=== PATIENT | male | born 1960 | race Caucasian/White ===

== ENCOUNTER 2022-10-27 13:26 | Inpatient (IN) | payer BC ==
[~2022-10-27] VITALS: Ht 190.5 cm; Wt 105.0 kg
[2022-10-27] VITALS (7 sets, daily range): BP systolic 112–152; BP diastolic 86–93
[2022-10-27] MEDS ORDERED: metoclopramide 5 mg/ml inj IV ONE (14:40)
[2022-10-27] MEDS ORDERED: proMETHazine 25mg tablet PO ONE (14:40)
[2022-10-27 15:06] LABS: BASOPHILS % (AUTO) 0.3 % (0-1); EOSINOPHILS % (AUTO) 0 % (0-6); HEMATOCRIT 23.5 % (42.0-52.0); LYMPHOCYTES # (AUTO) 0.9 X10'3 (1.1-4.8); MEAN CORPUSCULAR HEMOGLOBIN 18.5 PG (27.0-31.0); MEAN CORPUSCULAR HGB CONC 29.4 g/dL (33.0-36.5); MEAN CORPUSCULAR VOLUME 63.2 FL (78-98); MEAN PLATELET VOLUME 8.4 FL (7.4-10.4); MONOCYTES # (AUTO) 0.8 X10'3 (0-0.9); MONOCYTES % (AUTO) 7.7 % (2-12); PLATELET COUNT 392 X10'3 (140-440); RED BLOOD COUNT 3.72 X10'6 (4.70-6.10); WHITE BLOOD COUNT 10.7 X10'3 (4.5-11.0)
[2022-10-27 15:09] LABS: HEMOGLOBIN 6.9 g/dl (14.0-17.9)
[2022-10-27 15:19] LABS: ALANINE AMINOTRANSFERASE 13 U/L (12-78); ALBUMIN 3.5 G/DL (3.4-5.0); ALBUMIN/GLOBULIN RATIO 0.9 (1.1-1.5); ALKALINE PHOSPHATASE 75 IU/L (46-116); ANION GAP 7 (8-16); ASPARTATE AMINO TRANSFERASE 14 U/L (10-37); BILIRUBIN,TOTAL 0.3 MG/DL (0.1-1.0); BLOOD UREA NITROGEN 12 MG/DL (7-18); BUN/CREATININE RATIO 10.3 (5.4-32.0); CALCIUM 9.2 MG/DL (8.5-10.1); CHLORIDE 97 MMOL/L (99-107); CREATININE 1.16 MG/DL (0.60-1.10); GLUCOSE 125 MG/DL (70-104); SODIUM 135 MMOL/L (135-145); TOTAL CARBON DIOXIDE 30.9 MMOL/L (24-32); TOTAL PROTEIN 7.4 G/DL (6.4-8.2); eGFR 64 ML/MIN
[2022-10-27 15:20] LABS: POTASSIUM 2.9 MMOL/L (3.5-5.1)
[2022-10-27 15:25] LABS: ANISOCYTOSIS 3+; HYPOCHROMASIA 1+; MICROCYTOSIS 2+; PLATELET ESTIMATE NORMAL
[2022-10-27 15:26] LABS: ELLIPTOCYTES FEW; POIKILOCYTOSIS FEW; POLYCHROMASIA FEW
[2022-10-27] MEDS ORDERED: potassium Cl 20 mEq SR tablet PO ONE (15:50)
[2022-10-27] MEDS: magnesium 2GM in 50ml NS 50 ML IV SCH ×2 (16:34→18:30)
[2022-10-27] MEDS: potassium CL 10mEq/100ml bag 100 ML IV SCH ×3 (16:34→20:06)
--- NOTE | 2022-10-27 22:17 | NUR ---
DR. GALICIA NOTIFIED OF POSSIBLE BLOOD TRANSFUSION REACTION ON SECOND UNIT OF BLOOD. PT.S TEMP AT START OF TRANSFUSION 98.4 AT 1 HOUR INTO TRANSFUSION TEMP 100.2. PER DR. GALICIA LAB NOTIFIED. SPOKE WITH BALJIT AND IS TO CALL BACK. PT. DENIES ANY OTHER TRANSFUSION REACTION SYMPTOMS WHEN ASKED. Addendum: 10/27/22 at 2220 by SPARENT TRANSFUSION WAS STOPPED PER DR. GALICIA PRIOR TO CALLING THE LAB.
--- NOTE | 2022-10-27 22:33 | NUR ---
SPOKE WITH BALJIT IN BLOOD BANK REQUESTED 2 BLOOD BANK TUBES TO BE DRAWN AND TO SEND BLOOD AND TUBING TO THE BLOOD BANK.
--- NOTE | 2022-10-27 22:37 | NUR ---
SPOKE WITH BALJIT AGAIN AND IS REQUESTING NEW URINE SAMPLE
[2022-10-28 00:01] LABS: CLARITY,URINE SLIGHTLY CLOUDY (Clear); COLOR,URINE YELLOW (Yellow); GLUCOSE, URINE NEGATIVE (Neg); KETONES,URINE NEGATIVE (Neg); LEUKOCYTE ESTERASE ,URINE NEGATIVE (Neg); NITRITES, URINE NEGATIVE (Neg); OCCULT BLOOD,URINE NEGATIVE (Neg); PH,URINE 8.5 (4.8-8.0); PROTEIN,URINE NEGATIVE (Neg); UROBILINOGEN,URINE 0.2 E.U/dL (0.2-1.0)
[2022-10-28 00:02] LABS: UA COLLECTION TYPE STRAIGHT CATH
[2022-10-28 00:10] LABS: RBC,URINE 0-2 /HPF (0-2); WBC,URINE 0-4 /HPF (0-4)
[2022-10-28 00:11] LABS: BACTERIA,URINE NONE SEEN /HPF (Neg); MUCUS STRANDS NONE SEEN /LPF (Neg); SQUAMOUS EPITHELIAL CELL,UR NONE SEEN /LPF (FEW)
[2022-10-28 00:12] LABS: AMORPHOUS PHOSPHATES 3+
--- NOTE | 2022-10-28 00:46 | NUR ---
PT. HAS BEEN NON-COMPLIANT THROUGH OUT NIGHT WITH KEEPING MONITORS ON. HAVE REAPPLIED AND INSTRUCTED PT. TO KEEP ON, AT THE TIME HE VERBALIZES UNDERSTANDING YET CONTINUES TO REMOVE.
--- NOTE | 2022-10-28 01:08 | NUR ---
Patilent is sleeping quietly. Supine in bed. No distress.
--- NOTE | 2022-10-28 06:21 | NUR ---
report from britany pearson for continuation of care. pt is sleeping in position of comfort with even rise and fall of chest. vs wnl. iv site intact and patent
[2022-10-28 06:23] LABS: OCCULT BLOOD STOOL POSITIVE (Neg)
[2022-10-28] MEDS ORDERED: FURO40TA4 PO ×2 (07:27→07:43)
[2022-10-28] MEDS ORDERED: QUET25TA PO (07:37)
[2022-10-28] MEDS ORDERED: MULT-1085 PO (07:37)
[2022-10-28] MEDS ORDERED: FLO0.4C PO (07:40)
[2022-10-28] MEDS ORDERED: CHLO118M PO ×2 (07:44→07:47)
[2022-10-28] MEDS ORDERED: LOP12.5T PO ×2 (07:45→07:48)
[2022-10-28] MEDS ORDERED: DULO-31 PO (07:50)
[2022-10-28] MEDS ORDERED: FURO-150 PO (07:52)
[2022-10-28] MEDS ORDERED: QUET-1 PO (07:52)
[2022-10-28] MEDS ORDERED: OMEP20TA23 PO (07:56)
[2022-10-28] MEDS ORDERED: CYAN-34 PO (07:56)
[2022-10-28] MEDS ORDERED: PANT-47 PO ×2 (07:58→08:15)
[2022-10-28] MEDS ORDERED: POTA20PA40 PO (08:02)
[2022-10-28] MEDS ORDERED: SODI1TAB2 PO (08:05)
[2022-10-28] MEDS ORDERED: POTA8CAP20 PO (08:05)
[2022-10-28] MEDS ORDERED: ACET-1008 PO (08:07)
[2022-10-28] MEDS ORDERED: OXYC-150 PO (08:09)
[2022-10-28] MEDS ORDERED: ONDA4TAB12 PO (08:10)
[2022-10-28] MEDS ORDERED: PROM25TA14 PO (08:15)
--- NOTE | 2022-10-28 08:24 | NUR ---
[facility] # [phone]
[2022-10-28] MEDS ORDERED: potassium Cl 40MEQ/1/2NS 520ml 520 ML IV PRN (08:40)
[2022-10-28] MEDS ORDERED: acetaminophen 325mg tablet PO PRN ×2 (08:40→13:10)
[2022-10-28] MEDS ORDERED: ondansetron/PF 4mg/2ml inj IV PRN (08:40)
[2022-10-28] MEDS ORDERED: potassium Cl 20 mEq SR tablet PO PRN ×2 (08:40)
[2022-10-28] MEDS ORDERED: magnesium 4gm in 100ml NS 100 ML IV PRN (08:40)
[2022-10-28] MEDS ORDERED: magnesium hydroxide 30ml (MOM) UD suspension PO PRN (08:40)
[2022-10-28 09:46] LABS: ALANINE AMINOTRANSFERASE 11 U/L (12-78); ALBUMIN 3.3 G/DL (3.4-5.0); ALBUMIN/GLOBULIN RATIO 0.9 (1.1-1.5); ALKALINE PHOSPHATASE 68 IU/L (46-116); BASOPHILS % (AUTO) 0.5 % (0-1); BILIRUBIN,TOTAL 0.5 MG/DL (0.1-1.0); BLOOD UREA NITROGEN 7 MG/DL (7-18); BUN/CREATININE RATIO 8.1 (5.4-32.0); CALCIUM 8.1 MG/DL (8.5-10.1); CHLORIDE 104 MMOL/L (99-107); CREATININE 0.86 MG/DL (0.60-1.10); EOSINOPHILS # (AUTO) 0.2 X10'3 (0-0.9); EOSINOPHILS % (AUTO) 2.6 % (0-6); GLUCOSE 99 MG/DL (70-104); HEMATOCRIT 26.8 % (42.0-52.0); HEMOGLOBIN 8.2 g/dl (14.0-17.9); LYMPHOCYTES # (AUTO) 1.3 X10'3 (1.1-4.8); MAGNESIUM 2.2 MG/DL (1.5-2.4); MEAN CORPUSCULAR HGB CONC 30.8 g/dL (33.0-36.5); MEAN CORPUSCULAR VOLUME 68.1 FL (78-98); MEAN PLATELET VOLUME 8.5 FL (7.4-10.4); MONOCYTES # (AUTO) 0.8 X10'3 (0-0.9); MONOCYTES % (AUTO) 9.7 % (2-12); NEUTROPHILS # (AUTO) 6.2 X10'3 (1.8-7.7); NEUTROPHILS % (AUTO) 72.2 % (42-75); PLATELET COUNT 309 X10'3 (140-440); RED BLOOD COUNT 3.93 X10'6 (4.70-6.10); RED CELL DISTRIBUTION WIDTH 29.9 % (11.5-14.5); TOTAL CARBON DIOXIDE 25.2 MMOL/L (24-32); TOTAL PROTEIN 6.8 G/DL (6.4-8.2); WHITE BLOOD COUNT 8.6 X10'3 (4.5-11.0); eGFR 90 ML/MIN
[2022-10-28 10:04] LABS: ANION GAP 7 (8-16); ASPARTATE AMINO TRANSFERASE 13 U/L (10-37); POTASSIUM 3.6 MMOL/L (3.5-5.1); SODIUM 136 MMOL/L (135-145)
[2022-10-28 10:21] LABS: ANISOCYTOSIS 3+; ELLIPTOCYTES 1+; HYPOCHROMASIA 1+; MICROCYTOSIS 2+; PLATELET ESTIMATE NORMAL; POLYCHROMASIA 1+; STOMATOCYTES FEW; TEAR DROP CELLS 1+
[2022-10-28] MEDS: pantoprazole 40MG/NS 100ML BAG 100 ML IV SCH ×3 (10:34→20:48)
--- NOTE | 2022-10-28 10:38 | NUR ---
ROBERT FROM [facility], [facility] OF [facility]. [facility] WOULD LIKE UPDATE AND CONDITION REPORT. CONTACT NUMBER IS .
--- NOTE | 2022-10-28 11:04 | NUR ---
Patient in room [facility]. I have received report from MYRON PHILLIPS FROM ER and had the opportunity to ask questions and assume patient care.
--- NOTE | 2022-10-28 11:10 | NUR ---
REPORT TO VAUGHN SANCHES FOR CONTINUATION OF CARE
[2022-10-28 11:30] VITALS: BP 139/82
[2022-10-28] MEDS ORDERED: proMETHazine 25mg tablet PO PRN (13:10)
[2022-10-28] MEDS ORDERED: ondansetron 4mg rapidly disintigrating tab PO PRN (13:10)
[2022-10-28] MEDS: mag hydrox/Alum hydrox/simeth 30ml oral suspension PO PRN ×2 (14:42→20:54)
[2022-10-28 18:00] VITALS: BP 156/97
--- NOTE | 2022-10-28 18:27 | NUR ---
Problems reprioritized. Patient report given, questions answered & plan of care reviewed with SABINO Carson RN.
[2022-10-28] MEDS: K and/or MAG REPLACEMENT MC SCH (19:40)
[2022-10-28] MEDS: quetiapine 100mg tablet PO SCH (20:49)
[2022-10-28] MEDS: duloxetine 30mg CAPSULE.DR PO SCH (20:49)
[2022-10-28] MEDS: metoprolol tartrate 25mg tablet PO SCH (20:49)
[2022-10-28] MEDS: potassium chloride 8mEq ER tablet PO SCH (20:49)
[2022-10-28] MEDS: sodium chloride 1gm tablet PO SCH (20:49)
[2022-10-28] MEDS: furosemide 20MG tablet PO SCH (20:49)
[2022-10-28] MEDS: docusate sod 100mg capsule PO SCH (20:50)
[2022-10-28 22:00] VITALS: BP 94/52
[2022-10-29] MEDS: pantoprazole 40MG/NS 100ML BAG 100 ML IV SCH ×5 (02:27→21:39)
[2022-10-29 06:00] VITALS: BP 99/50
--- NOTE | 2022-10-29 06:03 | NUR ---
Problems reprioritized. Patient report given, questions answered & plan of care reviewed with MYRON Brooke.
--- NOTE | 2022-10-29 06:24 | NUR ---
Patient in room [facility]. I have received report from SABINO Carson RN and had the opportunity to ask questions and assume patient care.
[2022-10-29 06:56] LABS: BASOPHILS # (AUTO) 0.1 X10'3 (0-0.2); BASOPHILS % (AUTO) 0.8 % (0-1); EOSINOPHILS # (AUTO) 0.7 X10'3 (0-0.9); EOSINOPHILS % (AUTO) 8.7 % (0-6); LYMPHOCYTES # (AUTO) 1.8 X10'3 (1.1-4.8); LYMPHOCYTES % (AUTO) 21.4 % (21-51); MEAN CORPUSCULAR HEMOGLOBIN 21.1 PG (27.0-31.0); MEAN CORPUSCULAR HGB CONC 30.8 g/dL (33.0-36.5); MEAN CORPUSCULAR VOLUME 68.6 FL (78-98); MEAN PLATELET VOLUME 8.6 FL (7.4-10.4); MONOCYTES # (AUTO) 0.8 X10'3 (0-0.9); MONOCYTES % (AUTO) 10.2 % (2-12); NEUTROPHILS # (AUTO) 4.8 X10'3 (1.8-7.7); NEUTROPHILS % (AUTO) 58.9 % (42-75); PLATELET COUNT 273 X10'3 (140-440); RED BLOOD COUNT 3.79 X10'6 (4.70-6.10); RED CELL DISTRIBUTION WIDTH 29.5 % (11.5-14.5); WHITE BLOOD COUNT 8.2 X10'3 (4.5-11.0)
[2022-10-29 07:31] LABS: ALANINE AMINOTRANSFERASE 7 U/L (12-78); ALBUMIN 3.2 G/DL (3.4-5.0); ALKALINE PHOSPHATASE 66 IU/L (46-116); ANION GAP 7 (8-16); ASPARTATE AMINO TRANSFERASE 16 U/L (10-37); BILIRUBIN,TOTAL 0.6 MG/DL (0.1-1.0); BLOOD UREA NITROGEN 7 MG/DL (7-18); BUN/CREATININE RATIO 7.5 (5.4-32.0); CHLORIDE 105 MMOL/L (99-107); CREATININE 0.93 MG/DL (0.60-1.10); GLUCOSE 92 MG/DL (70-104); MAGNESIUM 2.3 MG/DL (1.5-2.4); POTASSIUM 3.8 MMOL/L (3.5-5.1); SODIUM 139 MMOL/L (135-145); TOTAL CARBON DIOXIDE 27.1 MMOL/L (24-32); TOTAL PROTEIN 6.4 G/DL (6.4-8.2); eGFR 82 ML/MIN
[2022-10-29] MEDS ORDERED: cyanocobalamin 500mcg tablet PO SCH (08:00)
[2022-10-29] MEDS: K and/or MAG REPLACEMENT MC SCH ×2 (08:00→19:13)
[2022-10-29] MEDS ORDERED: SINCALIDE IV ONE (08:40)
[2022-10-29] MEDS ORDERED: NORMAL SALINE IV ONE (08:40)
[2022-10-29] MEDS: furosemide 40mg tablet PO SCH (10:42)
[2022-10-29] MEDS: tamsulosin 0.4mg capsule PO SCH (10:43)
[2022-10-29] MEDS: docusate sod 100mg capsule PO SCH ×2 (10:43→19:23)
[2022-10-29] MEDS: multivitamins, therapeutics tablet PO SCH (10:43)
[2022-10-29] MEDS: potassium chloride 8mEq ER tablet PO SCH ×2 (10:44→19:23)
[2022-10-29] MEDS: sodium chloride 1gm tablet PO SCH ×2 (10:44→19:24)
[2022-10-29] MEDS: QUEtiapine 25mg tablet PO SCH (10:44)
[2022-10-29] MEDS: metoprolol tartrate 25mg tablet PO SCH ×2 (10:44→19:23)
[2022-10-29 11:00] VITALS: BP 131/78
[2022-10-29 18:30] VITALS: BP 107/65
--- NOTE | 2022-10-29 18:30 | NUR ---
Patient in room [facility]. I have received report from MYRON Brooke and had the opportunity to ask questions and assume patient care. Addendum: 10/29/22 at 1919 by Jay Toscano RN Amended: Links added.
--- NOTE | 2022-10-29 18:58 | NUR ---
Problems reprioritized. Patient report given, questions answered & plan of care reviewed with MYRON BURGER.
[2022-10-29] MEDS: mag hydrox/Alum hydrox/simeth 30ml oral suspension PO PRN (21:38)
[2022-10-29] MEDS: quetiapine 100mg tablet PO SCH (21:39)
[2022-10-29] MEDS: furosemide 20MG tablet PO SCH (21:39)
[2022-10-29] MEDS: duloxetine 30mg CAPSULE.DR PO SCH (21:39)
[2022-10-29 22:30] VITALS: BP 108/64
[2022-10-30] VITALS (12 sets, daily range): BP systolic 101–136; BP diastolic 62–85
[2022-10-30] MEDS: pantoprazole 40MG/NS 100ML BAG 100 ML IV SCH ×4 (01:00→19:11)
--- NOTE | 2022-10-30 06:08 | NUR ---
Problems reprioritized. Patient report given, questions answered & plan of care reviewed with MYRON Brooke. Addendum: 10/30/22 at 0608 by Jay Toscano RN Amended: Links added.
--- NOTE | 2022-10-30 06:23 | NUR ---
Patient in room [facility]. I have received report from MYRON BURGER and had the opportunity to ask questions and assume patient care.
[2022-10-30 06:35] LABS: BASOPHILS # (AUTO) 0.1 X10'3 (0-0.2); BASOPHILS % (AUTO) 0.6 % (0-1); EOSINOPHILS # (AUTO) 0.7 X10'3 (0-0.9); EOSINOPHILS % (AUTO) 7.8 % (0-6); HEMATOCRIT 26.9 % (42.0-52.0); HEMOGLOBIN 8.3 g/dl (14.0-17.9); LYMPHOCYTES # (AUTO) 1.2 X10'3 (1.1-4.8); LYMPHOCYTES % (AUTO) 13.3 % (21-51); MEAN CORPUSCULAR HEMOGLOBIN 21.1 PG (27.0-31.0); MEAN CORPUSCULAR VOLUME 68.1 FL (78-98); MEAN PLATELET VOLUME 8.6 FL (7.4-10.4); MONOCYTES # (AUTO) 0.8 X10'3 (0-0.9); MONOCYTES % (AUTO) 8.7 % (2-12); NEUTROPHILS # (AUTO) 6.1 X10'3 (1.8-7.7); NEUTROPHILS % (AUTO) 69.6 % (42-75); PLATELET COUNT 275 X10'3 (140-440); RED BLOOD COUNT 3.95 X10'6 (4.70-6.10); WHITE BLOOD COUNT 8.8 X10'3 (4.5-11.0)
[2022-10-30 07:10] LABS: ALANINE AMINOTRANSFERASE 8 U/L (12-78); ALBUMIN 3.3 G/DL (3.4-5.0); ALKALINE PHOSPHATASE 72 IU/L (46-116); ANION GAP 6 (8-16); ASPARTATE AMINO TRANSFERASE 18 U/L (10-37); BILIRUBIN,TOTAL 0.6 MG/DL (0.1-1.0); BLOOD UREA NITROGEN 10 MG/DL (7-18); BUN/CREATININE RATIO 10.1 (5.4-32.0); CALCIUM 8.2 MG/DL (8.5-10.1); CHLORIDE 103 MMOL/L (99-107); CREATININE 0.99 MG/DL (0.60-1.10); GLUCOSE 92 MG/DL (70-104); MAGNESIUM 2.1 MG/DL (1.5-2.4); POTASSIUM 3.7 MMOL/L (3.5-5.1); SODIUM 138 MMOL/L (135-145); TOTAL CARBON DIOXIDE 28.7 MMOL/L (24-32); TOTAL PROTEIN 6.7 G/DL (6.4-8.2); eGFR 77 ML/MIN
[2022-10-30] MEDS: tamsulosin 0.4mg capsule PO SCH (08:00)
[2022-10-30] MEDS: potassium chloride 8mEq ER tablet PO SCH ×2 (08:00→19:12)
[2022-10-30] MEDS: cyanocobalamin 500mcg tablet PO SCH (08:00)
[2022-10-30] MEDS: docusate sod 100mg capsule PO SCH ×2 (08:00→19:12)
[2022-10-30] MEDS: metoprolol tartrate 25mg tablet PO SCH ×2 (08:00→19:12)
[2022-10-30] MEDS: sodium chloride 1gm tablet PO SCH ×2 (08:00→20:16)
[2022-10-30] MEDS: QUEtiapine 25mg tablet PO SCH (08:00)
[2022-10-30] MEDS: furosemide 40mg tablet PO SCH (08:00)
[2022-10-30] MEDS: K and/or MAG REPLACEMENT MC SCH ×2 (08:00→19:29)
[2022-10-30] MEDS: multivitamins, therapeutics tablet PO SCH (08:00)
[2022-10-30] MEDS ORDERED: FENTANYL CITRATE/PF 50 MCG/1 ML VIAL ONE (09:55)
[2022-10-30] MEDS ORDERED: LIDOcaine Viscous 15ml cup ONE (09:56)
[2022-10-30] MEDS ORDERED: MIDAZolam 1 MG/ML 5ML VIAL ONE (09:56)
[2022-10-30] MEDS ORDERED: naloxone 0.4 mg/ml inj IV PRN (11:25)
--- NOTE | 2022-10-30 19:03 | NUR ---
Problems reprioritized. Patient report given, questions answered & plan of care reviewed with MYRON PALACIOS.
[2022-10-30] MEDS: furosemide 20MG tablet PO SCH (20:16)
[2022-10-30] MEDS: duloxetine 30mg CAPSULE.DR PO SCH (20:16)
[2022-10-30] MEDS: quetiapine 100mg tablet PO SCH (20:16)
[2022-10-31 06:15] LABS: BASOPHILS % (AUTO) 0.6 % (0-1); EOSINOPHILS # (AUTO) 0.6 X10'3 (0-0.9); EOSINOPHILS % (AUTO) 9.8 % (0-6); HEMOGLOBIN 8.3 g/dl (14.0-17.9); LYMPHOCYTES # (AUTO) 1.3 X10'3 (1.1-4.8); LYMPHOCYTES % (AUTO) 20.5 % (21-51); MEAN CORPUSCULAR VOLUME 67.8 FL (78-98); MEAN PLATELET VOLUME 8.5 FL (7.4-10.4); MONOCYTES # (AUTO) 0.7 X10'3 (0-0.9); MONOCYTES % (AUTO) 10.6 % (2-12); NEUTROPHILS # (AUTO) 3.8 X10'3 (1.8-7.7); NEUTROPHILS % (AUTO) 58.5 % (42-75); PLATELET COUNT 277 X10'3 (140-440); RED BLOOD COUNT 3.98 X10'6 (4.70-6.10); WHITE BLOOD COUNT 6.5 X10'3 (4.5-11.0)
--- NOTE | 2022-10-31 06:24 | NUR ---
Problems reprioritized. Patient report given, questions answered & plan of care reviewed with MYRON PACHECO.
[2022-10-31 06:31] LABS: ALBUMIN 3.1 G/DL (3.4-5.0); ALBUMIN/GLOBULIN RATIO 0.9 (1.1-1.5); ALKALINE PHOSPHATASE 68 IU/L (46-116); ANION GAP 5 (8-16); ASPARTATE AMINO TRANSFERASE 13 U/L (10-37); BILIRUBIN,TOTAL 0.5 MG/DL (0.1-1.0); BLOOD UREA NITROGEN 10 MG/DL (7-18); BUN/CREATININE RATIO 10.4 (5.4-32.0); CALCIUM 8.2 MG/DL (8.5-10.1); CHLORIDE 103 MMOL/L (99-107); CREATININE 0.96 MG/DL (0.60-1.10); GLUCOSE 93 MG/DL (70-104); MAGNESIUM 2.3 MG/DL (1.5-2.4); POTASSIUM 3.8 MMOL/L (3.5-5.1); SODIUM 137 MMOL/L (135-145); TOTAL CARBON DIOXIDE 28.8 MMOL/L (24-32); TOTAL PROTEIN 6.6 G/DL (6.4-8.2); eGFR 79 ML/MIN
[2022-10-31 06:40] LABS: ALANINE AMINOTRANSFERASE < 6 U/L (12-78)
[2022-10-31 06:57] VITALS: BP 120/72
--- NOTE | 2022-10-31 06:59 | NUR ---
Patient in room [facility] 353. I have received report from pk garg and had the opportunity to ask questions and assume patient care.
[2022-10-31] MEDS: K and/or MAG REPLACEMENT MC SCH ×2 (07:18→20:00)
[2022-10-31] MEDS: docusate sod 100mg capsule PO SCH ×2 (08:59→20:17)
[2022-10-31] MEDS: tamsulosin 0.4mg capsule PO SCH (08:59)
[2022-10-31] MEDS: furosemide 40mg tablet PO SCH (08:59)
[2022-10-31] MEDS: potassium chloride 8mEq ER tablet PO SCH ×2 (08:59→20:17)
[2022-10-31] MEDS: cyanocobalamin 500mcg tablet PO SCH (09:00)
[2022-10-31] MEDS: sodium chloride 1gm tablet PO SCH ×2 (09:00→20:20)
[2022-10-31] MEDS: metoprolol tartrate 25mg tablet PO SCH ×2 (09:00→20:18)
[2022-10-31] MEDS: QUEtiapine 25mg tablet PO SCH (09:00)
[2022-10-31] MEDS: multivitamins, therapeutics tablet PO SCH (09:00)
[2022-10-31] MEDS: pantoprazole 40MG/NS 100ML BAG 100 ML IV SCH ×2 (09:14→19:49)
[2022-10-31 10:46] VITALS: BP 103/63
[2022-10-31 18:00] VITALS: BP 117/70
--- NOTE | 2022-10-31 18:00 | NUR ---
Patient in room [facility]. I have received report from Candi and had the opportunity to ask questions and assume patient care.
--- NOTE | 2022-10-31 18:32 | NUR ---
Problems reprioritized. Patient report given, questions answered & plan of care reviewed with ALAINA SANCHES.
[2022-10-31] MEDS: duloxetine 30mg CAPSULE.DR PO SCH (20:18)
[2022-10-31] MEDS: furosemide 20MG tablet PO SCH (20:18)
[2022-10-31] MEDS: quetiapine 100mg tablet PO SCH (20:19)
[2022-10-31 22:00] VITALS: BP 140/81
[2022-11-01] VITALS (30 sets, daily range): BP systolic 106–126; BP diastolic 64–94
--- NOTE | 2022-11-01 06:05 | NUR ---
Problems reprioritized. Patient report given, questions answered & plan of care reviewed with Deedee.
[2022-11-01] MEDS ORDERED: LIDOcaine 1% 30ml preserv. free vial ONE (06:40)
[2022-11-01] MEDS ORDERED: BUPIVAcaine 0.5% inj/PF 30 ML ONE (06:40)
[2022-11-01 06:51] LABS: BASOPHILS % (AUTO) 0.7 % (0-1); EOSINOPHILS # (AUTO) 0.6 X10'3 (0-0.9); EOSINOPHILS % (AUTO) 8.5 % (0-6); HEMATOCRIT 27.6 % (42.0-52.0); HEMOGLOBIN 8.4 g/dl (14.0-17.9); LYMPHOCYTES # (AUTO) 1.4 X10'3 (1.1-4.8); LYMPHOCYTES % (AUTO) 22.1 % (21-51); MEAN CORPUSCULAR HEMOGLOBIN 20.9 PG (27.0-31.0); MEAN CORPUSCULAR HGB CONC 30.6 g/dL (33.0-36.5); MEAN CORPUSCULAR VOLUME 68.2 FL (78-98); MEAN PLATELET VOLUME 8.6 FL (7.4-10.4); MONOCYTES # (AUTO) 0.8 X10'3 (0-0.9); MONOCYTES % (AUTO) 11.6 % (2-12); NEUTROPHILS # (AUTO) 3.7 X10'3 (1.8-7.7); NEUTROPHILS % (AUTO) 57.1 % (42-75); PLATELET COUNT 267 X10'3 (140-440); RED BLOOD COUNT 4.05 X10'6 (4.70-6.10); RED CELL DISTRIBUTION WIDTH 30.6 % (11.5-14.5); WHITE BLOOD COUNT 6.5 X10'3 (4.5-11.0)
[2022-11-01 07:04] LABS: PRE OP PROTIME 10.5 SECONDS (9.0-12.0)
[2022-11-01 07:28] LABS: ALANINE AMINOTRANSFERASE 9 U/L (12-78); ALBUMIN 3.2 G/DL (3.4-5.0); ALBUMIN/GLOBULIN RATIO 0.9 (1.1-1.5); ALKALINE PHOSPHATASE 72 IU/L (46-116); ANION GAP 10 (8-16); ASPARTATE AMINO TRANSFERASE 15 U/L (10-37); BILIRUBIN,TOTAL 0.3 MG/DL (0.1-1.0); BLOOD UREA NITROGEN 16 MG/DL (7-18); BUN/CREATININE RATIO 17.8 (5.4-32.0); CALCIUM 8.1 MG/DL (8.5-10.1); CHLORIDE 102 MMOL/L (99-107); GLUCOSE 100 MG/DL (70-104); MAGNESIUM 2.3 MG/DL (1.5-2.4); POTASSIUM 4.2 MMOL/L (3.5-5.1); SODIUM 139 MMOL/L (135-145); TOTAL PROTEIN 6.9 G/DL (6.4-8.2); eGFR 86 ML/MIN
[2022-11-01] MEDS: K and/or MAG REPLACEMENT MC SCH ×2 (08:00→20:46)
[2022-11-01] MEDS: docusate sod 100mg capsule PO SCH ×2 (08:00→20:55)
[2022-11-01] MEDS: tamsulosin 0.4mg capsule PO SCH (08:45)
[2022-11-01] MEDS: QUEtiapine 25mg tablet PO SCH (08:45)
[2022-11-01] MEDS: cyanocobalamin 500mcg tablet PO SCH (08:46)
[2022-11-01] MEDS: multivitamins, therapeutics tablet PO SCH (08:46)
[2022-11-01] MEDS: potassium chloride 8mEq ER tablet PO SCH ×2 (08:46→20:56)
[2022-11-01] MEDS: furosemide 40mg tablet PO SCH (08:48)
[2022-11-01] MEDS: pantoprazole 40MG/NS 100ML BAG 100 ML IV SCH ×2 (08:48→20:56)
[2022-11-01] MEDS: metoprolol tartrate 25mg tablet PO SCH ×2 (08:51→20:56)
[2022-11-01] MEDS: sodium chloride 1gm tablet PO SCH ×2 (08:54→20:55)
--- NOTE | 2022-11-01 10:22 | NUR ---
attempted to call report to recovery
[2022-11-01] MEDS ORDERED: HYDROmorphone/PF 0.2 MG/ML SYRINGE IV PRN ×2 (10:55)
[2022-11-01] MEDS ORDERED: meperidine/PF 25mg/ml syringe IV PRN (10:55)
[2022-11-01] MEDS ORDERED: ketorolac trometh. 30mg/ml inj. IV ONE (10:55)
[2022-11-01] MEDS ORDERED: ondansetron/PF 4mg/2ml inj IV PRN ×2 (10:55→13:45)
[2022-11-01] MEDS ORDERED: morphine 4 MG/ML inj SYRINge IV PRN (10:55)
[2022-11-01] MEDS ORDERED: ringers solution, lacted 1,000 ML IV SCH (10:55)
[2022-11-01] MEDS ORDERED: morphine 2 MG/ML inj. syringe IV PRN (10:55)
[2022-11-01] MEDS ORDERED: hydrALAZINE 20mg/ml inj. IV PRN (10:55)
[2022-11-01] MEDS ORDERED: acetaminophen 1,000mg/100ml IV 100 ML IV PRN (10:55)
[2022-11-01] MEDS ORDERED: proCHLORperazine 10 MG/2 ml inj IV PRN (10:55)
[2022-11-01] MEDS ORDERED: labetalol 20mg/4ml (5mg/ml) syringe IV PRN (10:55)
[2022-11-01] MEDS ORDERED: sevoflurane 250ml liquid IH ONE (11:01)
[2022-11-01] MEDS ORDERED: midazolam 1 mg/ML 2ml injection ONE (11:11)
[2022-11-01] MEDS ORDERED: fentaNYL /PF 50mcg/ml 5ml ampule ONE (11:12)
[2022-11-01] MEDS ORDERED: BUPIVAcaine 0.5% inj/PF 30 ml vial IJ ONE (11:43)
[2022-11-01] MEDS ORDERED: rocuronium 10mg/ml inj IV ONE (12:27)
[2022-11-01] MEDS ORDERED: propofol inj 20 ML IV ONE (12:27)
[2022-11-01] MEDS ORDERED: 0.9 % SODIUM CHLORIDE 10 ML VIAL ONE ×5 (12:27→12:28)
[2022-11-01] MEDS ORDERED: LIDOcaine 2% (20mg/ml) 5ml vial ONE (12:27)
[2022-11-01] MEDS ORDERED: ceFAZolin 1000mg inj ONE ×2 (12:27)
[2022-11-01] MEDS ORDERED: dexamethasone sod phosphate 4mg/ml inj. ONE (12:28)
[2022-11-01] MEDS ORDERED: ondansetron/PF 4mg/2ml inj ONE (12:28)
[2022-11-01] MEDS ORDERED: phenylephrine 10mg/ml inj. -priapism dosing ONE (12:28)
[2022-11-01] MEDS ORDERED: ePHEDrine 50MG/ML INJ. ONE (12:28)
[2022-11-01] MEDS ORDERED: albumin (Human) 5% 250ml 250 ML IV ONE ×2 (12:29)
[2022-11-01] MEDS: normal saline 1000ml 1,000 ML IV SCH (13:45)
[2022-11-01] MEDS ORDERED: naloxone 0.4 mg/ml inj IV PRN (13:45)
--- NOTE | 2022-11-01 13:50 | NUR ---
Received from OR via BED, accompanied by Anesthesiologist DR. LA and report given by Anesthesiolgist AND OR NURSE. PT ARRIVED SEDATED ON 10L OF 02 VIA MASK. 20 G IV TO RIGHT ARM. APONTE CATHETER DRAINING YELLOW, CLEAR URINE TO GRAVITY. 4 ABD LAP SITES C/D/I. SCD'S ON. VSS. WILL CONTINUE TO MONITOR. Addendum: 11/01/22 at 1412 by Marianne Ashraf RN Amended: Links added.
--- NOTE | 2022-11-01 14:00 | NUR ---
ELOISEAR REPORT GIVEN TO MYRON SARMIENTO WHO WILL BE ASSUMING CARE OF PT. Addendum: 11/01/22 at 1414 by Marianne Ashraf RN Amended: Links added.
--- NOTE | 2022-11-01 16:20 | NUR ---
Report called to receiving nurse. Transferred via BED, NO Belongings, BLL, CALL LIGHT GIVEN, SIDE RAILS UP X 2, RECEIVING RN NOTIFIED OF PTS ARRIVAL. PT ATTACHED TO VS MACHINE. Special Issues communicated to receiving nurse. YES. Addendum: 11/01/22 at 1640 by Margie Munguia RN Amended: Links added.
--- NOTE | 2022-11-01 18:15 | NUR ---
Problems reprioritized. Patient report given, questions answered & plan of care reviewed with prudence rn.
--- NOTE | 2022-11-01 18:53 | NUR ---
Patient in room [facility]. I have received report from RIGO SANCHES and had the opportunity to ask questions and assume patient care.
[2022-11-01] MEDS ORDERED: docusate sod 100mg capsule PO SCH (20:00)
[2022-11-01] MEDS: sennosides/docusate sodium tablet PO SCH (20:55)
[2022-11-01] MEDS: quetiapine 100mg tablet PO SCH (20:55)
[2022-11-01] MEDS: furosemide 20MG tablet PO SCH (20:56)
[2022-11-01] MEDS: duloxetine 30mg CAPSULE.DR PO SCH (20:56)
[2022-11-01] MEDS: enoxaparin 40mg/0.4ml syringe SUBCUT SCH (20:57)
[2022-11-01] MEDS: oxyCODONE/APAP 10/325mg tablet PO PRN (22:46)
[2022-11-02 02:20] VITALS: BP 102/78
[2022-11-02] MEDS: oxyCODONE/APAP 10/325mg tablet PO PRN ×3 (02:58→19:32)
--- NOTE | 2022-11-02 06:28 | NUR ---
Problems reprioritized. Patient report given, questions answered & plan of care reviewed with AVTAR RN.
--- NOTE | 2022-11-02 06:30 | NUR ---
Patient in room [facility]. I have received report from Cecile SANCHES and had the opportunity to ask questions and assume patient care.
[2022-11-02 06:31] LABS: BASOPHILS % (AUTO) 0.2 % (0-1); EOSINOPHILS % (AUTO) 0.1 % (0-6); HEMATOCRIT 27.2 % (42.0-52.0); HEMOGLOBIN 8.2 g/dl (14.0-17.9); LYMPHOCYTES % (AUTO) 12.2 % (21-51); MEAN CORPUSCULAR HEMOGLOBIN 20.6 PG (27.0-31.0); MEAN CORPUSCULAR HGB CONC 29.9 g/dL (33.0-36.5); MEAN CORPUSCULAR VOLUME 68.7 FL (78-98); MEAN PLATELET VOLUME 8.7 FL (7.4-10.4); MONOCYTES # (AUTO) 0.8 X10'3 (0-0.9); MONOCYTES % (AUTO) 9.6 % (2-12); NEUTROPHILS # (AUTO) 6.2 X10'3 (1.8-7.7); NEUTROPHILS % (AUTO) 77.9 % (42-75); PLATELET COUNT 308 X10'3 (140-440); RED BLOOD COUNT 3.97 X10'6 (4.70-6.10); RED CELL DISTRIBUTION WIDTH 30.1 % (11.5-14.5); WHITE BLOOD COUNT 7.9 X10'3 (4.5-11.0)
[2022-11-02 06:32] LABS: ALANINE AMINOTRANSFERASE 28 U/L (12-78); ALBUMIN 3.4 G/DL (3.4-5.0); ALBUMIN/GLOBULIN RATIO 0.9 (1.1-1.5); ALKALINE PHOSPHATASE 65 IU/L (46-116); ANION GAP 10 (8-16); ASPARTATE AMINO TRANSFERASE 27 U/L (10-37); BILIRUBIN,TOTAL 0.3 MG/DL (0.1-1.0); BLOOD UREA NITROGEN 11 MG/DL (7-18); BUN/CREATININE RATIO 10.9 (5.4-32.0); CALCIUM 8.4 MG/DL (8.5-10.1); CHLORIDE 103 MMOL/L (99-107); CREATININE 1.01 MG/DL (0.60-1.10); GLUCOSE 124 MG/DL (70-104); MAGNESIUM 2.3 MG/DL (1.5-2.4); POTASSIUM 3.9 MMOL/L (3.5-5.1); SODIUM 137 MMOL/L (135-145); TOTAL CARBON DIOXIDE 23.9 MMOL/L (24-32); TOTAL PROTEIN 7.1 G/DL (6.4-8.2); eGFR 75 ML/MIN
[2022-11-02 07:12] VITALS: BP 110/60
[2022-11-02] MEDS: multivitamins, therapeutics tablet PO SCH (07:41)
[2022-11-02] MEDS: furosemide 40mg tablet PO SCH (07:41)
[2022-11-02] MEDS: tamsulosin 0.4mg capsule PO SCH (07:41)
[2022-11-02] MEDS: sodium chloride 1gm tablet PO SCH ×2 (07:41→19:32)
[2022-11-02] MEDS: cyanocobalamin 500mcg tablet PO SCH (07:42)
[2022-11-02] MEDS: QUEtiapine 25mg tablet PO SCH (07:42)
[2022-11-02] MEDS: docusate sod 100mg capsule PO SCH ×2 (07:43→19:33)
[2022-11-02] MEDS: sennosides/docusate sodium tablet PO SCH ×2 (07:43→19:33)
[2022-11-02] MEDS: pantoprazole 40MG/NS 100ML BAG 100 ML IV SCH (07:43)
[2022-11-02] MEDS: metoprolol tartrate 25mg tablet PO SCH ×2 (07:43→19:33)
[2022-11-02] MEDS: potassium chloride 8mEq ER tablet PO SCH ×2 (07:48→19:32)
[2022-11-02] MEDS: K and/or MAG REPLACEMENT MC SCH ×2 (08:00→19:20)
[2022-11-02 08:22] LABS: PLATELET ESTIMATE NORMAL
[2022-11-02 08:23] LABS: ANISOCYTOSIS 3+; ELLIPTOCYTES 1+; HYPOCHROMASIA 2+; MICROCYTOSIS 2+; TEAR DROP CELLS 1+
[2022-11-02 08:24] LABS: POLYCHROMASIA 1+
[2022-11-02 10:43] VITALS: BP 90/53
[2022-11-02 11:00] VITALS: BP 98/53
--- NOTE | 2022-11-02 16:59 | NUR ---
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 Healing Getachew's ulcer found w/ bleeding resolved per EMR. Pt post-op day 1 s/p type III paraesophageal hernia repair with mesh and fundoplication advanced to full liquids diet WS today from prior clears. To remain on full liquids two weeks post-op per surgeon note; dietary notified to not send straws on trays. PO 75-100% prior meals this admit though diets fluctuate mostly liquids only so pt not meeting estimated needs. Pt seen by RD for written/verbal fundoplication diet ed w/ RD contact information and Ensure ONS coupons provided. Pt required frequent redirecting during verbal ed; RD encouraged pt to contact dietitian's office if further questions/concerns. Pt is agreeable to chocolate Ensure Plus HP TIDWM given full liquids restriction; pending physician verification in EMR. Pt hx CVA w/ L hemiparesis per pt; no need for adaptive wear though does require assistance at meals per pt. LBM 10/31 receiving routine colace. Will monitor for further nutrition intervention needs this admit. Rec: 1. continue full liquids diet for next two weeks per surgeon; advance to pureed diet after as medically indicated 2. Chocolate Ensure Plus HP TIDWM; pending physician verification in EMR 3. MVI supplementation per MD 4. routine bowel care 5. scaled wt this admit; subsequent weekly wts Addendum: 11/02/22 at [address] Amended: Links added.
[2022-11-02 18:00] VITALS: BP 143/68
[2022-11-02] MEDS ORDERED: LACTOSE-REDUCED FOOD (ENSURE PLUS HP) 237 ML LIQUID PO SCH (18:00)
--- NOTE | 2022-11-02 18:12 | NUR ---
Patient in room [facility]. I have received report from AVTAR SANCHES and had the opportunity to ask questions and assume patient care.
--- NOTE | 2022-11-02 18:55 | NUR ---
Problems reprioritized. Patient report given, questions answered & plan of care reviewed with Prudence RN.
[2022-11-02] MEDS: enoxaparin 40mg/0.4ml syringe SUBCUT SCH (19:34)
[2022-11-02] MEDS: furosemide 20MG tablet PO SCH (20:48)
[2022-11-02] MEDS: quetiapine 100mg tablet PO SCH (20:48)
[2022-11-02] MEDS: duloxetine 30mg CAPSULE.DR PO SCH (20:48)
[2022-11-02 22:00] VITALS: BP 110/73
--- NOTE | 2022-11-03 06:23 | NUR ---
Problems reprioritized. Patient report given, questions answered & plan of care reviewed with AVTAR RN.
--- NOTE | 2022-11-03 06:48 | NUR ---
Patient in room [facility]. I have received report from PAULA SANCHES and had the opportunity to ask questions and assume patient care.
[2022-11-03 07:32] VITALS: BP 113/78
[2022-11-03] MEDS: oxyCODONE/APAP 10/325mg tablet PO PRN ×2 (07:36→20:29)
[2022-11-03] MEDS: sodium chloride 1gm tablet PO SCH ×2 (07:37→20:41)
[2022-11-03] MEDS: docusate sod 100mg capsule PO SCH ×2 (07:37→20:36)
[2022-11-03] MEDS: furosemide 40mg tablet PO SCH (07:37)
[2022-11-03] MEDS: metoprolol tartrate 25mg tablet PO SCH ×2 (07:37→20:37)
[2022-11-03] MEDS: multivitamins, therapeutics tablet PO SCH (07:37)
[2022-11-03] MEDS: cyanocobalamin 500mcg tablet PO SCH (07:37)
[2022-11-03] MEDS: QUEtiapine 25mg tablet PO SCH (07:38)
[2022-11-03] MEDS: potassium chloride 8mEq ER tablet PO SCH ×2 (07:38→20:41)
[2022-11-03] MEDS: pantoprazole 40mg Tablet.DR PO SCH (07:39)
[2022-11-03] MEDS: sennosides/docusate sodium tablet PO SCH ×2 (07:39→20:36)
[2022-11-03] MEDS: tamsulosin 0.4mg capsule PO SCH (07:39)
[2022-11-03] MEDS: K and/or MAG REPLACEMENT MC SCH ×2 (08:00→20:00)
[2022-11-03 11:07] VITALS: BP 113/71
[2022-11-03] MEDS: normal saline 1000ml 1,000 ML IV SCH ×2 (13:45→22:43)
[2022-11-03 18:00] VITALS: BP 133/81
--- NOTE | 2022-11-03 18:13 | NUR ---
Problems reprioritized. Patient report given, questions answered & plan of care reviewed with Pat RN.
[2022-11-03] MEDS: enoxaparin 40mg/0.4ml syringe SUBCUT SCH (20:35)
[2022-11-03] MEDS: quetiapine 100mg tablet PO SCH (20:36)
[2022-11-03] MEDS: duloxetine 30mg CAPSULE.DR PO SCH (20:37)
[2022-11-03] MEDS: furosemide 20MG tablet PO SCH (20:37)
[2022-11-03 22:00] VITALS: BP 131/75
--- NOTE | 2022-11-04 06:13 | NUR ---
Patient in room [facility]. I have received report from Pat RN and had the opportunity to ask questions and assume patient care.
[2022-11-04 06:19] VITALS: BP 131/62
[2022-11-04] MEDS: K and/or MAG REPLACEMENT MC SCH ×2 (08:00→19:19)
[2022-11-04] MEDS: sodium chloride 1gm tablet PO SCH ×2 (08:34→20:53)
[2022-11-04] MEDS: metoprolol tartrate 25mg tablet PO SCH ×2 (08:35→20:53)
[2022-11-04] MEDS: sennosides/docusate sodium tablet PO SCH ×2 (08:35→20:53)
[2022-11-04] MEDS: tamsulosin 0.4mg capsule PO SCH (08:35)
[2022-11-04] MEDS: docusate sod 100mg capsule PO SCH ×2 (08:36→20:53)
[2022-11-04] MEDS: potassium chloride 8mEq ER tablet PO SCH ×2 (08:36→20:53)
[2022-11-04] MEDS: pantoprazole 40mg Tablet.DR PO SCH (08:36)
[2022-11-04] MEDS: multivitamins, therapeutics tablet PO SCH (08:36)
[2022-11-04] MEDS: furosemide 40mg tablet PO SCH (08:36)
[2022-11-04] MEDS: QUEtiapine 25mg tablet PO SCH (08:37)
[2022-11-04] MEDS: oxyCODONE/APAP 10/325mg tablet PO PRN ×2 (08:40→20:54)
[2022-11-04] MEDS: cyanocobalamin 500mcg tablet PO SCH (08:40)
[2022-11-04 10:39] VITALS: BP 114/66
[2022-11-04 18:00] VITALS: BP 104/66
--- NOTE | 2022-11-04 18:19 | NUR ---
Problems reprioritized. Patient report given, questions answered & plan of care reviewed with Isabelle SANCHES.
[2022-11-04] MEDS: duloxetine 30mg CAPSULE.DR PO SCH (20:53)
[2022-11-04] MEDS: furosemide 20MG tablet PO SCH (20:53)
[2022-11-04] MEDS: quetiapine 100mg tablet PO SCH (20:53)
[2022-11-04] MEDS: enoxaparin 40mg/0.4ml syringe SUBCUT SCH (20:54)
[2022-11-04 22:00] VITALS: BP 109/71
--- NOTE | 2022-11-05 06:21 | NUR ---
Report given to Lazaro SANCHES.
--- NOTE | 2022-11-05 06:30 | NUR ---
Patient in room [facility]. I have received report from Isabelle SANCHES and had the opportunity to ask questions and assume patient care.
[2022-11-05 06:49] VITALS: BP 113/73
[2022-11-05] MEDS: tamsulosin 0.4mg capsule PO SCH (07:31)
[2022-11-05] MEDS: oxyCODONE/APAP 10/325mg tablet PO PRN ×2 (07:31→20:11)
[2022-11-05] MEDS: multivitamins, therapeutics tablet PO SCH (07:31)
[2022-11-05] MEDS: sodium chloride 1gm tablet PO SCH ×2 (07:32→20:11)
[2022-11-05] MEDS: pantoprazole 40mg Tablet.DR PO SCH (07:32)
[2022-11-05] MEDS: furosemide 40mg tablet PO SCH (07:32)
[2022-11-05] MEDS: metoprolol tartrate 25mg tablet PO SCH ×2 (07:32→20:11)
[2022-11-05] MEDS: docusate sod 100mg capsule PO SCH ×2 (07:32→20:11)
[2022-11-05] MEDS: sennosides/docusate sodium tablet PO SCH ×2 (07:33→20:11)
[2022-11-05] MEDS: cyanocobalamin 500mcg tablet PO SCH (07:33)
[2022-11-05] MEDS: potassium chloride 8mEq ER tablet PO SCH ×2 (07:33→20:11)
[2022-11-05] MEDS: QUEtiapine 25mg tablet PO SCH (07:34)
[2022-11-05] MEDS: K and/or MAG REPLACEMENT MC SCH ×2 (08:00→19:20)
--- NOTE | 2022-11-05 09:13 | NUR ---
Dr Dai rounded and stated pt is OK to DC home from his perspective, and pt may go home on Reg diet and f/u w/ Dr Hawkins in 1 week. Addendum: 11/05/22 at 0921 by Jovanna Harmon RN MYRON Willis, notified of above. RN recalls Dr Hawkins stated pt is to be on full liquid diet x2 weeks post op.
--- NOTE | 2022-11-05 09:18 | NUR ---
Spoke with Dr. Hawkins on 11/02, was notified that Patient is stay on a full liquid diet for 2 week, and is to follow up with Dr. Hawkins at that 2 week time frame. It is noted the same in Dr. Arthur last note on 11/02.
[2022-11-05 11:00] VITALS: BP 96/60
[2022-11-05] MEDS: normal saline 1000ml 1,000 ML IV SCH (13:45)
[2022-11-05] MEDS ORDERED: bisacodyl 5mg tablet.DR PO PRN (14:20)
[2022-11-05 18:00] VITALS: BP 103/72
--- NOTE | 2022-11-05 18:54 | NUR ---
Problems reprioritized. Patient report given, questions answered & plan of care reviewed with Isabelle SANCHES.
[2022-11-05] MEDS ORDERED: docusate sod 100mg capsule PO SCH (20:00)
[2022-11-05] MEDS: furosemide 20MG tablet PO SCH (20:11)
[2022-11-05] MEDS: quetiapine 100mg tablet PO SCH (20:11)
[2022-11-05] MEDS: duloxetine 30mg CAPSULE.DR PO SCH (20:11)
[2022-11-05] MEDS: enoxaparin 40mg/0.4ml syringe SUBCUT SCH (20:14)
[2022-11-05 22:00] VITALS: BP 125/76
[2022-11-06 06:00] VITALS: BP 114/72
--- NOTE | 2022-11-06 06:26 | NUR ---
Report given to Vilma LOPEZ.
--- NOTE | 2022-11-06 07:02 | NUR ---
Patient in room [facility]. I have received report from Isabelle SANCHES and had the opportunity to ask questions and assume patient care.
[2022-11-06] MEDS: multivitamins, therapeutics tablet PO SCH (07:41)
[2022-11-06] MEDS: metoprolol tartrate 25mg tablet PO SCH ×2 (07:41→20:28)
[2022-11-06] MEDS: tamsulosin 0.4mg capsule PO SCH (07:42)
[2022-11-06] MEDS: QUEtiapine 25mg tablet PO SCH (07:42)
[2022-11-06] MEDS: docusate sod 100mg capsule PO SCH ×2 (07:42→20:28)
[2022-11-06] MEDS: cyanocobalamin 500mcg tablet PO SCH (07:42)
[2022-11-06] MEDS: pantoprazole 40mg Tablet.DR PO SCH (07:42)
[2022-11-06] MEDS: sennosides/docusate sodium tablet PO SCH ×2 (07:42→20:28)
[2022-11-06] MEDS: sodium chloride 1gm tablet PO SCH ×2 (07:42→20:28)
[2022-11-06] MEDS: potassium chloride 8mEq ER tablet PO SCH ×2 (07:42→20:28)
[2022-11-06] MEDS: K and/or MAG REPLACEMENT MC SCH ×2 (07:42→20:00)
[2022-11-06] MEDS: furosemide 40mg tablet PO SCH (07:42)
[2022-11-06 13:10] VITALS: BP 112/68
--- NOTE | 2022-11-06 13:58 | NUR ---
Reassessment: Pt continues on full liquid diet and eating well, documented with mostly 100% PO intake since last RD assessment (11/02). Despite good PO intake estimated nutrient needs are not being met d/t the nature of the diet. ONS still pending physician approval in EMR. d/w dietary to send a shake BIDLD while ONS still pending. LBM 11/05. Will continue to follow. Recommendations: 1. Continue full liquids diet for two weeks then advance to pureed diet once cleared by surgeon 2. Chocolate Ensure Plus HP TIDWM; pending physician verification in EMR; chocolate shake BIDLD 3. MVI supplementation per MD 4. Routine bowel care 5. Scaled wt this admit; subsequent weekly scaled wts Addendum: 11/06/22 at [address] Amended: Links added.
[2022-11-06 18:00] VITALS: BP 109/81
--- NOTE | 2022-11-06 18:00 | NUR ---
I have reviewed and agree with all interventions, assessments performed, and documentation by Vilma Potter LVN.
--- NOTE | 2022-11-06 18:09 | NUR ---
Problems reprioritized. Patient report given, questions answered & plan of care reviewed with Isabelle SANCHES.
[2022-11-06] MEDS: quetiapine 100mg tablet PO SCH (20:28)
[2022-11-06] MEDS: oxyCODONE/APAP 10/325mg tablet PO PRN (20:28)
[2022-11-06] MEDS: duloxetine 30mg CAPSULE.DR PO SCH (20:28)
[2022-11-06] MEDS: furosemide 20MG tablet PO SCH (20:29)
[2022-11-06] MEDS: enoxaparin 40mg/0.4ml syringe SUBCUT SCH (20:30)
[2022-11-06 22:00] VITALS: BP 140/77
[2022-11-07 06:00] VITALS: BP 110/64
[2022-11-07] MEDS: potassium chloride 8mEq ER tablet PO SCH (07:48)
[2022-11-07] MEDS: QUEtiapine 25mg tablet PO SCH (07:48)
[2022-11-07] MEDS: cyanocobalamin 500mcg tablet PO SCH (07:48)
[2022-11-07 07:49] VITALS: BP_SYST 111
[2022-11-07] MEDS: metoprolol tartrate 25mg tablet PO SCH (07:49)
[2022-11-07] MEDS: sennosides/docusate sodium tablet PO SCH (07:49)
[2022-11-07] MEDS: sodium chloride 1gm tablet PO SCH (07:49)
[2022-11-07] MEDS: K and/or MAG REPLACEMENT MC SCH (07:49)
[2022-11-07] MEDS: furosemide 40mg tablet PO SCH (07:49)
[2022-11-07] MEDS: pantoprazole 40mg Tablet.DR PO SCH (07:49)
[2022-11-07] MEDS: multivitamins, therapeutics tablet PO SCH (07:49)
[2022-11-07] MEDS: tamsulosin 0.4mg capsule PO SCH (07:49)
[2022-11-07] MEDS: docusate sod 100mg capsule PO SCH (07:49)
--- NOTE | 2022-11-07 13:36 | NUR ---
Pt DC home to [facility], pt picked up by [facility] for transport to home facility. Pt VSS, alert and oriented upon DC. PIC DC with no complications or s/s of infection or infiltration. Pt has no complaint of pain or discomfort with removal of PIV, canula intact. Pt agreeable and understanding of all discharge instructions, all belongings and paperwork included with patients belongings upon DC.
== END 2022-11-07 13:48 | disposition home or self-care (01) | DRG 326 ==
LOC: ER 13:27 → ED HOLD 10-28 08:46 → SUR 3N 10-28 11:22
PROVIDERS: ADMIT Family Medicine; ATTEND Family Medicine
PROC: 30233N1 Transfusion of Nonautologous Red Blood Cells into Peripheral Vein, Percutaneous Approach (ICD-10-PCS; 2022-10-27)
PROC: 0DJ08ZZ Inspection of Upper Intestinal Tract, Via Natural or Artificial Opening Endoscopic (ICD-10-PCS; 2022-10-30)
PROC: 8E0W4CZ Robotic Assisted Procedure of Trunk Region, Percutaneous Endoscopic Approach (ICD-10-PCS; 2022-11-01)
PROC: 0DV44ZZ Restriction of Esophagogastric Junction, Percutaneous Endoscopic Approach (ICD-10-PCS; 2022-11-01)
PROC: 0BUT4JZ Supplement Diaphragm with Synthetic Substitute, Percutaneous Endoscopic Approach (ICD-10-PCS; principal; 2022-11-01 11:01)
DX: K44.9 Diaphragmatic hernia without obstruction or gangrene (principal); N17.0 Acute kidney failure with tubular necrosis; I69.351 Hemiplegia and hemiparesis following cerebral infarction affecting right dominant side; K92.0 Hematemesis; Z20.822 Contact with and (suspected) exposure to COVID-19; D64.9 Anemia, unspecified; E87.6 Hypokalemia; I10 Essential (primary) hypertension; Z66 Do not resuscitate; E86.0 Dehydration; K21.9 Gastro-esophageal reflux disease without esophagitis; K42.9 Umbilical hernia without obstruction or gangrene; K80.20 Calculus of gallbladder without cholecystitis without obstruction; Z80.0 Family history of malignant neoplasm of digestive organs; Z80.51 Family history of malignant neoplasm of kidney; Z82.5 Family history of asthma and other chronic lower respiratory diseases; Z86.718 Personal history of other venous thrombosis and embolism; Z79.899 Other long term (current) drug therapy
CPT/HCPCS: 43235; 99285; Z7506; Z7508; 36415; 36430; 71045; 74018; 74176; 76700; 80053; 81001; 81003; 82272; 82948; 83735; 85008; 85025; 85610; 85730; 86078; 86885; 86900; 86901; 86920; 87040; 87070; 87081; 87811; 93005; 97161; 97164; 97530; 97535; 99152; A4349; A4615; A4618; A4620; A4649; C1781; C9113; G0378; J0690; J1100; J1650; J2250; J2370; J2405; J2704; J2765; J3010; J3475; J3480; J3490; J7030; J7040; J7042; P9016; P9045; Q0169; S0020

== ENCOUNTER 2024-10-16 05:41 | Emergency (ER) | payer MEDICARE ==
[~2024-10-16] VITALS: Ht 180.3 cm; Wt 97.2 kg
[~2024-10-16 05:41] MED LIST: ACET-1008 PO; CHLO118M PO; CYAN-34 PO; DULO-31 PO; FLO0.4C PO; FURO-150 PO; FURO40TA4 PO; LOP12.5T PO; MULT-1085 PO; ONDA-243 PO; OXYC-150 PO; PANT-47 PO; POTA8CAP20 PO; PROM25TA14 PO; QUET-1 PO; QUET25TA PO; SODI1TAB2 PO
[2024-10-16] MEDS: ondansetron/PF 4mg/2ml inj IV ONE (06:12)
[2024-10-16] MEDS: morphine 4 MG/ML inj SYRINge IV ONE (06:13)
[2024-10-16 06:30] LABS: BASOPHILS # (AUTO) 0.1 X10'3 (0-0.2); BASOPHILS % (AUTO) 0.7 % (0-1); EOSINOPHILS # (AUTO) 0.3 X10'3 (0-0.9); EOSINOPHILS % (AUTO) 3.5 % (0-6); HEMATOCRIT 45.5 % (42.0-52.0); HEMOGLOBIN 15.1 g/dl (14.0-17.9); LYMPHOCYTES # (AUTO) 2.1 X10'3 (1.1-4.8); LYMPHOCYTES % (AUTO) 21.2 % (21-51); MEAN CORPUSCULAR HEMOGLOBIN 29.6 PG (27.0-31.0); MEAN CORPUSCULAR HGB CONC 33.3 g/dL (33.0-36.5); MEAN PLATELET VOLUME 9.8 FL (7.4-10.4); MONOCYTES # (AUTO) 0.5 X10'3 (0-0.9); NEUTROPHILS # (AUTO) 6.9 X10'3 (1.8-7.7); NEUTROPHILS % (AUTO) 69.6 % (42-75); PLATELET COUNT 234 X10'3 (140-440); RED BLOOD COUNT 5.11 X10'6 (4.70-6.10); WHITE BLOOD COUNT 9.9 X10'3 (4.5-11.0)
[2024-10-16 08:07] LABS: INR 1.1 INR; PROTHROMBIN TIME 11.1 SECONDS (9.0-12.0)
[2024-10-16 08:18] LABS: BILIRUBIN,URINE NEGATIVE (Neg); CLARITY,URINE CLEAR (Clear); COLOR,URINE YELLOW (Yellow); GLUCOSE, URINE NEGATIVE (Neg); KETONES,URINE TRACE mg/dl (Neg); LEUKOCYTE ESTERASE ,URINE NEGATIVE (Neg); NITRITES, URINE NEGATIVE (Neg); OCCULT BLOOD,URINE NEGATIVE (Neg); PROTEIN,URINE 30 mg/dl (Neg); UROBILINOGEN,URINE 0.2 E.U/dL (0.2-1.0)
[2024-10-16 08:29] LABS: UA COLLECTION TYPE STRAIGHT CATH
[2024-10-16 08:29] LABS: ALANINE AMINOTRANSFERASE 32 U/L (12-78); ALBUMIN 3.8 G/DL (3.4-5.0); ALKALINE PHOSPHATASE 92 IU/L (46-116); ANION GAP 9 (8-16); ASPARTATE AMINO TRANSFERASE 20 U/L (10-37); BILIRUBIN,TOTAL 0.4 MG/DL (0.1-1.0); BLOOD UREA NITROGEN 12 MG/DL (7-18); BUN/CREATININE RATIO 9.8 (10.0-20.0); CALCIUM 8.3 MG/DL (8.5-10.1); CHLORIDE 106 MMOL/L (99-107); CREATININE 1.23 MG/DL (0.60-1.10); GLUCOSE 112 MG/DL (70-104); POTASSIUM 4.2 MMOL/L (3.5-5.1); SODIUM 143 MMOL/L (135-145); TOTAL PROTEIN 7.6 G/DL (6.4-8.2); eCRCL 65 ML/MIN; eGFR 59 ML/MIN
[2024-10-16 08:30] LABS: BACTERIA,URINE NONE SEEN /HPF (Neg); MUCUS STRANDS FEW /LPF (Neg); RBC,URINE 0-2 /HPF (0-2); SQUAMOUS EPITHELIAL CELL,UR NONE SEEN /LPF (FEW); WBC,URINE 0-4 /HPF (0-4)
[2024-10-16] MEDS ORDERED: iohexol 300mg/ml 100ml inj. ONE (08:30)
[2024-10-16] MEDS: levetiracetam-NACL1000mg/100ml 100 ML IV SCH (10:04)
[2024-10-16] MEDS ORDERED: KEP500T PO (10:31)
[2024-10-16 10:45] VITALS: BP 150/109; PULSE 112; RESP 33; O2SAT 95
[2024-10-16 11:40] VITALS: TEMP 97.9
[2024-10-16] MEDS ORDERED: levetiracetam inj 1,000 MG in normal saline 100ml IV soln 100 ML IV SCH (20:00)
== END 2024-10-16 11:43 ==
LOC: ER 05:42
DX: R56.9 Unspecified convulsions (principal); R41.82 Altered mental status, unspecified; K21.9 Gastro-esophageal reflux disease without esophagitis; Z86.73 Personal history of transient ischemic attack (TIA), and cerebral infarction without residual deficits; Z79.899 Other long term (current) drug therapy
CPT/HCPCS: 36415; 71045; 71260; 74177; 80053; 81001; 83605; 84145; 84484; 85025; 85610; 96365; 96375; 99285; A4615; C1758; J1953; J2270; J2405; Q9967

== ENCOUNTER 2025-09-30 04:46 | Inpatient (IN) | payer MEDICARE ==
[2025-09-30] VITALS (7 sets, daily range): BP systolic 124–153; BP diastolic 88–99; PULSE 57–90; RESP 16–29; TEMP 97.3–97.8; O2SAT 90–95
[~2025-09-30] VITALS: Ht 172.7 cm; Wt 94.5 kg
[~2025-09-30 04:46] MED LIST changes: +ASCO500C17 PO; +AZIT500T2 PO; +CHOL20003 PO; -CYAN-34 PO; +FERR325T35 PO; -FLO0.4C PO; -FURO-150 PO; -FURO40TA4 PO; -LOP12.5T PO; -MULT-1085 PO; -PANT-47 PO; +PANT40TA54 PO; -POTA8CAP20 PO; -SODI1TAB2 PO; +TAMS-55 PO; +thiamine tablet PO
[2025-09-30] MEDS: normal saline 1000ml 1,000 ML IV ONE (04:55)
--- NOTE | 2025-09-30 05:02 | ELECTROCARDIOGRAPH REPORT ---
[facility] Test Date: 2025-09-30 Test Time: 05:01:14 Pat Name: MARY MARR Department: [facility]- Patient ID: [facility]-[id number] Room: Gender: M Hip Hop Dancer: : 1960 Requested By: RUDDY LEAL Order Number: [id number] Reading MD: Dr. Ruddy Leal Measurements Intervals [place] Rate: 107 P: 40 MN: 164 QRS: 18 QRSD: 83 T: 33 QT: 341 QTc: 455 Interpretive Statements Sinus tachycardia Ventricular trigeminy Low voltage, precordial leads Borderline T abnormalities, anterior leads Electronically Signed On 09-30-2025 5:40:[address] Ruddy Leal Please click the below link to view image of tracing.
--- NOTE | 2025-09-30 05:28 | RADIOLOGY REPORT ---
CHEST RADIOGRAPH Indication: vomiting Technique: DI CHEST,SINGLE VIEW COMPARISON: 08/05/2025 FINDINGS: The cardiac silhouette is enlarged. The lungs demonstrate bilateral patchy airspace opacities, most pronounced in the left lower lobe. The pulmonary vasculature is prominent. Small to moderate left pleural effusion. There is no pneumothorax. Atherosclerotic calcification disease. IMPRESSION: Cardiomegaly with pulmonary vascular congestion and bilateral patchy airspace opacities. Small to moderate left pleural effusion
[2025-09-30] MEDS: ondansetron/PF 4mg/2ml inj IV ONE (05:34)
[2025-09-30 05:56] LABS: MEAN PLATELET VOLUME 9.5 FL (7.4-10.4); RED CELL DISTRIBUTION WIDTH 14.2 % (11.5-14.5)
[2025-09-30 06:00] LABS: APTT 28 SECONDS (22-32); INR 1.0 INR
[2025-09-30 06:23] LABS: CREATININE 0.87 MG/DL (0.60-1.10); TOTAL CARBON DIOXIDE 33.0 MMOL/L (24-32); eCRCL 82 ML/MIN; eGFR 88 ML/MIN
[2025-09-30 06:29] LABS: OCCULT BLOOD STOOL NEGATIVE (Neg)
[2025-09-30 06:30] LABS: ETHANOL < 10 MG/DL (<10)
--- NOTE | 2025-09-30 07:11 | Physician Documentation ---
History of Present Illness ~ Chief Complaint: Bloody Emesis Stated Complaint: GI BLEED ALS Time Seen by MD: 04:51 OK to notify your PCP?: Yes Source: patient, RN/MD, EMS, RN notes reviewed, EMS notes reviewed, old records Mode of Arrival: EMS Exam Limitations: no limitations HPI Patient comes from assisted living where he was found to have some coffee-ground emesis 6 hours prior to arrival. Patient continues to have episodes of vomiting and was sent to our facility for evaluation. Patient states he has a history of gastric ulcers duodenal ulcer not clear. He does have a history of drinking alcohol. And at this facility had approximately 1 L of coffee-ground emesis. Patient is at the son dialysis and living. He had some left-sided weakness secondary to a prior CVA and does not appear to be on anticoagulation. Patient is complaining of some abdominal pain. And he is now here for evaluation. Patient uses a walker has left-sided weakness from prior CVA in his not on anticoagulation Medication Reconciliation Allergies: Coded Allergies: No Known Allergies (Unverified , 10/16/24) Scheduled Ascorbic Acid (Vitamin C), 1 CAP PO DAILY, (Reported) Azithromycin (Zithromax Tri-Morgan), 500 MG PO DAILY Chlorhexidine Gluconate (Peridex), 15 ML PO Q12H, (Reported) Cholecalciferol (Vitamin D3) (Vitamin D3), 1 TAB PO DAILY, (Reported) Duloxetine Hcl* (Cymbalta*), 60 MG PO HS, (Reported) Ferrous Sulfate (Ferosul), 325 MG PO DAILY, (Reported) Pantoprazole Sodium (Pantoprazole Sodium), 40 MG PO BID Quetiapine Fumarate (Seroquel), 3 TAB PO DAILY, (Reported) Quetiapine Fumarate* (Seroquel*), 1 TAB PO HS, (Reported) Tamsulosin Hcl* (Flomax*), 1 CAP PO DAILY, (Reported) [thiamine tablet], 100 MG PO DAILY Scheduled PRN Acetaminophen (Tylenol), 650 MG PO Q6H PRN PAIN PRN for pain, (Reported) ONDANSETRON ODT 4mg tablet (Ondansetron Odt), 1 TABLET PO Q6H PRN for nausea/vomiting, (Reported) Oxycodone HCl/Acetaminophen (Percocet 10-325 mg Tablet), 1 TAB PO Q4H PRN for pain, (Reported) Promethazine HCl (Promethazine HCl), 25 MG PO Q6H PRN for nausea/vomiting, (Reported) Past Medical History Past Medical History: CVA/TIA/Stroke, GERD Other Past Surgical History: IVC filter Patient History: FH: COPD (chronic obstructive pulmonary disease) MOTHER FH: colon cancer MOTHER FH: kidney cancer BROTHER Smoking Status: Never smoker Drug Use: none Lives In: Assisted Care Review of Systems All Other Systems at this time: Reviewed and Negative Physical Exam Vital Signs: RN Vital Signs have been reviewed: Yes, Temperature: 97.9, Source: Oral, Heart Rate: 106, Respiratory Rate: 24, BP: 152/105, Pulse Oximetry: 93, Weight: 94.550 Oxygen Flow Rate: 2.0 Physical Exam General: The patient is well developed, well nourished, nontoxic appearing and is in moderate acute distress., Skin: [place], warm and dry with no rashes. HEENT: Head was normocephalic and atraumatic. Eyes - pupils equal, round, reactive to light and accommodation. Extraocular movements were intact. Conjunctivae were nonicteric. Ears - bilateral tympanic membranes were normal. The mouth and oropharynx were clear with moist mucous membranes. There were no pharyngeal exudates or erythema. Neck: Supple and nontender. There was no jugular venous distention, lymphadenopathy, thyromegaly or masses. Chest: Clear to auscultation bilaterally without wheezes, rales or rhonchi. No accessory muscle use. Heart: Rate rapid regular and rhythmic. S1, S2. No murmurs. Palpation of the chest wall was normal. Abdomen: Soft, nontender and nondistended. Positive hyperactive bowel sounds. No guarding or rebound. No hepatosplenomegaly or palpable masses. Extremities: No cyanosis, clubbing or edema. The patient moves all extremities. Pulses were equal and symmetric. Rectal: Normal rectal tone no fissures no masses no hemorrhoids stool in the vault guaiac negative Neurologic: Motor sensory grossly intact Psychologic: The patient was oriented to person, place and time. The patient demonstrated appropriate judgement and insight. Progress Progress Note 7:30 a.m. discussed the case with the hospitalist who kindly agreed to admit the patient for further workup and care. Results/Orders Reviewed/noted all lab results: Yes Results/Orders Orders - KRISTOFER BAILON MD Urinalysis, Cult If Indicated (09/30/25 04:51) Electrocardiogram (09/30/25 04:51) Chest,Single View (09/30/25 04:51) Gastrocult Set Up (09/30/25 04:51) Hemocult Set Up (09/30/25 04:51) Morphine 2mg/Ml Inj. (Morphine Inj.) (09/30/25 04:55) Normal Saline 1000ml (0.9% Sodium Chlori (09/30/25 04:55) Monitor (09/30/25 04:51) Saline Lock (09/30/25 04:51) Page Hospitalist (09/30/25 07:09) Fill Out Med Reconciliation (09/30/25 07:09) Completed Orders - KRISTOFER BAILON MD Cbc/Diff (09/30/25 04:51) Lipase (09/30/25 04:51) Ethanol (09/30/25 04:51) MG (09/30/25 04:51) Pt Inr (09/30/25 04:51) PTT (09/30/25 04:51) Type And Screen (09/30/25 04:51) Electrocardiogram (09/30/25 04:51) Chest,Single View (09/30/25 04:51) BMP (09/30/25 04:51) Hs Troponin I W Calculations (09/30/25 04:51) Pantoprazole 40mg Iv (Protonix 40mg Iv) (09/30/25 04:55) Liver Panel (09/30/25 04:52) Ondansetron Inj. (Zofran 4mg/2ml Vial) (09/30/25 05:05) Occult Bld Stool (09/30/25 05:30) Medications Received in ER Medications (Trade) Dose Ordered Sig/Halina Route PRN Reason Start Time Stop Time Status Last Admin Dose Admin (morphine inj.) 2 mg Q5M PRN IV moderate to severe pain 4-10 09/30/25 04:55 09/30/25 05:34 2 MG Sodium Chloride 1,000 ml @ 150 mls/hr Q6H40M ONCE IV 09/30/25 04:55 09/30/25 11:34 09/30/25 04:55 150 MLS/HR (Protonix 40mg IV) 40 mg ONCE ONCE IV 09/30/25 04:55 09/30/25 04:56 DC 09/30/25 05:34 40 MG (Zofran 4mg/2ml vial) 4 mg ONCE ONCE IV 09/30/25 05:05 09/30/25 05:09 DC 09/30/25 05:34 4 MG Vital Signs 09/30/25 09/30/25 09/30/25 09/30/25 04:51 05:44 05:47 06:24 Temp 97.9 Pulse 105 110 106 Resp 20 18 16 24 B/P (MAP) 153/107 158/101 (120) 152/105 (121) Pulse Ox 90 94 93 O2 Flow Rate 2.0 2.0 09/30/25 07:24 Pulse 116 Resp 26 B/P (MAP) 142/111 (121) Pulse Ox 93 O2 Flow Rate 0 Laboratory Tests Test 09/30/25 05:20 09/30/25 05:30 White Blood Count 11.1 H Red Blood Count 5.59 Hemoglobin 16.1 Hematocrit 48.4 Mean Corpuscular Volume 86.6 Mean Corpuscular Hemoglobin 28.8 Mean Corpuscular Hemoglobin Concent 33.3 Red Cell Distribution Width 14.2 Platelet Count 321 Mean Platelet Volume 9.5 Neutrophils (%) (Auto) 89.7 H Lymphocytes (%) (Auto) 6.9 L Monocytes (%) (Auto) 2.7 Eosinophils (%) (Auto) 0.3 Basophils (%) (Auto) 0.4 Neutrophils # (Auto) 10.0 H Lymphocytes # (Auto) 0.8 L Monocytes # (Auto) 0.3 Eosinophils # (Auto) 0.0 Basophils # (Auto) 0.0 CBC Comment Prothrombin Time 10.6 INR International Normalized Ratio 1.0 Activated Partial Thromboplast Time 28 Coagulation Comments Sodium Level 142 Potassium Level 4.1 Chloride Level 102 Carbon Dioxide Level 33.0 H Anion Gap 7 L Blood Urea Nitrogen 10 Creatinine 0.87 Estimated GFR/1.73 m2 88 BUN/Creatinine Ratio 11.5 Glucose Level 148 H Calcium Level 9.3 Magnesium Level 2.3 Total Bilirubin 0.4 Direct Bilirubin 0.1 Aspartate Amino Transf (AST/SGOT) 32 Alanine Aminotransferase (ALT/SGPT) 42 Alkaline Phosphatase 81 Troponin I High Sensitivity 6 Total Protein 8.3 H Albumin 4.1 Globulin 4.2 Albumin/Globulin Ratio 1.0 L Lipase 25 Chemistry Comments Ethyl Alcohol Level < 10 Stool Occult Blood Negative Re-Evaluation Re-Evaluation : Re-Evaluation: Improved Progress Patient was vomiting up some coffee-ground emesis. He is guaiac negative. The patient is low longer in extremis. Received Protonix. Laboratory work was reassuring. The patient's CBC shows a slight leukocytosis of 11.1 but normal hemoglobin of 16 and hematocrit of 48 platelets 321 slight left shift of 89.7 % patient has normal coagulation profile chemistry shows normal lipase normal LFTs slight CO2 retention with us CO2 of 33 otherwise normal troponin is normal alcohol level is negative. Patient has been typed and screened. Upon arrival patient received morphine fluid boluses as well as his Protonix and Zofran. There was no additional bleeding he is stabilized at this time no longer in extremis. Patient was then admitted to the hospitalist service for further workup and care and EGD at some point during his hospital stay. Patient is tachycardic. He has a normal blood pressure. Continuous cardiac monitor technician interpretation shows sinus tachycardia heart rate 100s, abnormal, my interpretation. Pulse oximetry monitor interpretation shows normal oxygenation a bit low at 93% room air, normal, my interpretation. EKG/XRAY/CT/US/VASC/MRI EKG : Intepreting Monitor?: Yes Additional Comment [facility] Test Date: 2025-09-30 Test Time: 05:01:14 Pat Name: MARY MARR Department: [facility]- Patient ID: [facility]-[id number] Room: Gender: M Traffic Control Officer: : 1960 Requested By: KRISTOFER BAILON Order Number: [id number] Reading MD: Dr. Kristofer Bailon Measurements Intervals [place] Rate: 107 P: 40 [place]: 164 QRS: 18 QRSD: 83 T: 33 QT: 341 QTc: 455 Interpretive Statements Sinus tachycardia Ventricular trigeminy Low voltage, precordial leads Borderline T abnormalities, anterior leads Electronically Signed On 09-30-2025 5:40:[address] Kristofer Bailon Chest X-Ray : Additional Comments CHEST RADIOGRAPH Indication: vomiting Technique: DI CHEST,SINGLE VIEW COMPARISON: 08/05/2025 FINDINGS: The cardiac silhouette is enlarged. The lungs demonstrate bilateral patchy airspace opacities, most pronounced in the left lower lobe. The pulmonary vasculature is prominent. Small to moderate left pleural effusion. There is no pneumothorax. Atherosclerotic calcification disease. IMPRESSION: Cardiomegaly with pulmonary vascular congestion and bilateral patchy airspace opacities. Small to moderate left pleural effusion Medical Decision Making Additional information obtaine: old records Findings Upper GI bleed, gastritis, duodenal ulcer, esophageal bleeds all considered Diff Dx GI Bleed:Consideration: Include: AE fistula, Angiodysplasia, Bleeding diathesis, Blood loss anemia, Carcinoma, Diverticulosis, Diverticulitis, Esophageal varicies, Esophagitis, Gastritis, Gastroenteritis, Inflammatory BD, Susannah-Dee syndrome, Meckel's diverticulum, PUD, Other Departure Disposition: 09 ADMITTED INPATIENT Admitted to Inpatient Unit: yes, to hospitalist Admission Level of Care: Med/Surg with Tele Impression: Primary Impression: Hematemesis Qualified Codes: K92.0 - Hematemesis Additional Impression: Upper GI bleed Condition: Guarded Referrals: NO PRIMARY CARE PROVIDER (PCP) Education Educated: Patient Educated regarding: diagnosis, need for follow up Signature Scribe Signature: . Attestation: The note accurately reflects work and decisions made by me.Kristofer Bailon MD 09/30/25 07:11 KRISTOFER BAILON MD Sep 30, 2025 07:11
[2025-09-30] MEDS ORDERED: mag hydrox/Alum hydrox/simeth 30ml oral suspension PO PRN (07:40)
[2025-09-30] MEDS ORDERED: HYDROcodone/acetaminophen 5mg/325mg tablet PO PRN (07:40)
[2025-09-30] MEDS ORDERED: magnesium hydroxide 30ml (MOM) UD suspension PO PRN (07:40)
[2025-09-30] MEDS ORDERED: potassium Cl 40MEQ/1/2NS 520ml 520 ML IV PRN (07:40)
[2025-09-30] MEDS ORDERED: potassium Cl 20 mEq SR tablet PO PRN ×2 (07:40)
[2025-09-30] MEDS ORDERED: magnesium sulf-water 4G/100mL 100 ML IV PRN (07:40)
[2025-09-30] MEDS ORDERED: magnesium sulf-water 2g/50mL 50 ML IV PRN (07:40)
[2025-09-30] MEDS ORDERED: ondansetron/PF 4mg/2ml inj IV PRN (07:40)
[2025-09-30] MEDS ORDERED: magnesium Cl slow-release 64mg tablet PO PRN (07:40)
[2025-09-30] MEDS: K and/or MAG REPLACEMENT MC SCH (08:00)
[2025-09-30] MEDS: docusate sod 100mg capsule PO SCH (08:00)
[2025-09-30] MEDS: normal saline 1000ml 1,000 ML IV SCH (08:18)
[2025-09-30] MEDS: pantoprazole 40MG/NS 100ML BAG 100 ML IV SCH (11:40)
--- NOTE | 2025-09-30 17:27 | HISTORY AND PHYSICAL-Residence ---
History & Physical Providers to CC Resident Creating Document: EKVIN BANKS RES ~ History of Present Illness Reason for Admit\Complaint: Hematemesis History of Present Illness This is a 64-year-old male with past medical history of hypertension, GERD, recently diagnosed duodenal ulcer who came to the ER complaining of 1 episode of large volume hematemesis. He was diagnosed with LA grade D reflux esophagitis with no bleeding, erythematous mucosa in antrum and nonbleeding duodenal ulcer with clean ulcer base the 1st week of August. He was discharged with Protonix 40 mg p.o. b.i.d. but he was only taking it once a day. He drinks alcohol few times a week, 30 mL of whiskey a day. Last drink was 20 days ago. No previous history of liver disease, elevated transaminitis, esophageal varices, melena or hematochezia. Not on any blood thinners, NSAIDs, and pulse, or any other gastric irritant drugs. Allergies: Coded Allergies: No Known Allergies (Unverified , 10/16/24) Home Medications Home Medications Active Reported Vitamin D3 (Cholecalciferol (Vitamin D3)) 50 Mcg (2000 Unit) Tablet 1 Tab PO DAILY 30 Days Vitamin C (Ascorbic Acid) 500 Mg Capsule 1 Cap PO DAILY 30 Days Ferosul (Ferrous Sulfate) 325 Mg (65 Mg Iron) Tablet 325 Mg PO DAILY 90 Days Promethazine HCl 25 Mg Tablet 25 Mg PO Q6H PRN Ondansetron Odt (Ondansetron HCl) 4 Mg Tab.rapdis 1 Tablet PO Q6H PRN Percocet 10-325 mg Tablet (Oxycodone HCl/Acetaminophen) 1 Each Tablet 1 Tab PO Q4H PRN MDD 4 Tablet(s) Tylenol (Acetaminophen) 325 Mg Tablet 650 Mg PO Q6H PRN PAIN PRN Seroquel* (Quetiapine Fumarate) 100 Mg Tablet 1 Tab PO HS Cymbalta* (Duloxetine HCl) 30 Mg Capsule.dr 60 Mg PO HS Peridex (Chlorhexidine Gluconate) 118 Ml Mouthwash 15 Ml PO Q12H Flomax* (Tamsulosin HCl) 0.4 Mg Cap.sr.24h 1 Cap PO DAILY Seroquel (Quetiapine Fumarate) 25 Mg Tablet 3 Tab PO DAILY Past Medical History Past Medical History Hypertension GERD Duodenal ulcer CVA Past Surgical History Surgical History Comment None Family History Family History: FH: COPD (chronic obstructive pulmonary disease) MOTHER FH: colon cancer MOTHER FH: kidney cancer BROTHER Past Social History Drug Use: None Lives In: Assisted Care ROS All Other Systems: Reviewed and Negative Exam Vitals: Vital Signs Date Time Temp Pulse Resp B/P (MAP) Pulse Ox O2 Delivery O2 Flow Rate FiO2 09/30/25 09:29 101 09/30/25 09:25 97.6 20 150/98 (115) 95 Nasal Cannula 2.0 General: General: Well alert, well oriented, not confused, not agitated, not in acute distress, well cooperated during the physical. HEENT: Conjunctive are pink, sclerae clear, no icterus, pupil is equal in both sides, reactive to light, no ear discharge, no pharyngeal erythema or an edema. Neck: Supple, no JVD, no lymphadenopathy and thyromegaly. Chest: Equal air entry on both lungs, no added sounds, no wheeze. Cardiovascular: S1-S2 regular sinus rhythm and, regular rate, no gallops, no rubs, no murmurs Abdomen: No visible peristalsis, Bowel sounds present on auscultation, soft, nontender, no guarding, no rigidity Extremities: No obvious deformities, no pitting edema bilaterally, capillary refill intact, peripheral pulsations are intact on both sides Musculoskeletal: No joint swelling, deformities, inflammations, and no scoliosis and back tenderness Skin: Warm and dry. MENTAL STATUS: AAOx3 LANG/SPEECH: Fluent, intact naming, repetition & comprehension CRANIAL NERVES: II: Pupils equal and reactive, no RAPD, normal visual field and fundus III, IV, : EOM intact, no gaze preference or deviation V: normal VII: no facial asymmetry VIII: normal hearing to speech MOTOR: 3/5 in left upper and lower extremities, 5/5 in right upper and lower extremity REFLEXES: 2/4 throughout, bilateral flexor plantars SENSORY: Normal to touch, temperature & pin prick in all extremiteis COORD: Normal finger to nose and heel to torres, no tremor, no dysmetria Diagnostic Data Last Recorded Lab Results: 09/30/25 0520 09/30/25 0520 Diagnostic Data: Laboratory Tests Test 09/30/25 05:20 Prothrombin Time 10.6 SECONDS (9.0-12.0) INR International Normalized Ratio 1.0 INR Activated Partial Thromboplast Time 28 SECONDS (22-32) Coagulation Comments Counseling Services Smoking & Tobacco Cessation: N/A Advance Care Planning Advanced Care planning: N/A Additional Plan Assessment: This is a 64-year-old who was recently diagnosed with nonbleeding duodenal ulcer 2 weeks ago came with complaints of hematemesis. He is hemodynamically stable. Lab work shows dehydration. Gastroenterology consulted, NPO from midnight, endoscopic tomorrow morning. Plan: Hematemesis most likely from re- bleeding duodenal ulcer No further history of hematemesis during hospitalization Vitals stable, he H&H stable at 16.1 and 48.4 Started the patient on Protonix drip, Zosyn 4 mg IV p.r.n. Started the patient on clear liquid diet Gastroenterology consulted NPO from midnight,, endoscopy tomorrow morning Hypertension Started the patient on Lopressor 12.5 mg b.i.d. Awaiting med rec Code status: Full code DVT prophylaxis: SCDs Analgesia/sedation: Morphine/[place] Line/tube: PIV GI prophylaxis: None Nutrition: Clear liquid diet, NPO from midnight PT: Ordered. Prognosis: Guarded Disposition: NPO from midnight, endoscopy tomorrow morning Kevin Banks MD PGY1, Internal Medicine [facility] Date of Service: Sep 30, 2025 Billing Provider: VASU YOUNG MD Common Visit Codes: [id number] INP/OBS CARE (HIGH) Secondary Visit Codes: [id number] CARE PLAN 30 MINUTES KEVIN BANKS, RES Sep 30, 2025 17:27 VASU YOUNG MD Oct 02, 2025 06:55
--- NOTE | 2025-09-30 18:37 | CONSULTATION REPORT ---
History of Present Illness Providers to CC ~ Reason for Admit\Admit Dx: Hematemesis History of Present Illness History of present illness: This is a 64-year-old male with past medical history of hypertension, GERD who was recently diagnosed with with LA grade D reflux esophagitis with no bleeding, erythematous mucosa in antrum and nonbleeding duodenal ulcer with clean ulcer base the 1st week of August. He describes administered with large volume, approximately half a liter of coffee- ground vomitus. He also complains of chest burn in his elbow taste in his mouth. Apparently he has been taking Protonix 40 mg once a day instead of twice a day as prescribed during discharge. He has history of occasional alcohol intake, few times a week 30 mL of whiskey a day. Last drink was 20 days ago. No previous history of liver disease. Not on any blood thinners, NSAIDs, or any other gastric irritant drugs. ROS: 12 point review of systems essentially negative except for symptoms mentioned in HPI Physical exam: General: Well alert, well oriented, not confused, not agitated, not in acute distress, well cooperated during the physical. HEENT: Conjunctive are pink, sclerae clear, no icterus, pupil is equal in both sides, reactive to light, no ear discharge, no pharyngeal erythema or an edema. Chest: Equal air entry on both lungs Cardiovascular: S1-S2 regular sinus rhythm Abdomen: Bowel sounds present on auscultation, soft, nontender, no guarding, no rigidity Extremities: Weakness in his left arm and left leg after ischemic CVA Skin: Warm and dry. Assessment: This is a 64-year-old man recently diagnosed with nonbleeding duodenal ulcer who came to the emergency department complaining with hematemesis. He is hemodynamically stable with H&H levels of 16.1 and 48.4. This might most likely be from re bleeding of the duodenal ulcer as it takes 3-4 months for the ulcer base to completely heal while the patient is on Protonix b.i.d. Plan: Started the patient on clear liquid diet, as tolerated NPO from midnight, endoscopy tomorrow morning Monitor vitals. Allergies: Coded Allergies: No Known Allergies (Unverified , 10/16/24) Home Medications Home Medications Active Reported Vitamin D3 (Cholecalciferol (Vitamin D3)) 50 Mcg (2000 Unit) Tablet 1 Tab PO DAILY 30 Days Vitamin C (Ascorbic Acid) 500 Mg Capsule 1 Cap PO DAILY 30 Days Ferosul (Ferrous Sulfate) 325 Mg (65 Mg Iron) Tablet 325 Mg PO DAILY 90 Days Promethazine HCl 25 Mg Tablet 25 Mg PO Q6H PRN Ondansetron Odt (Ondansetron HCl) 4 Mg Tab.rapdis 1 Tablet PO Q6H PRN Percocet 10-325 mg Tablet (Oxycodone HCl/Acetaminophen) 1 Each Tablet 1 Tab PO Q4H PRN MDD 4 Tablet(s) Tylenol (Acetaminophen) 325 Mg Tablet 650 Mg PO Q6H PRN PAIN PRN Seroquel* (Quetiapine Fumarate) 100 Mg Tablet 1 Tab PO HS Cymbalta* (Duloxetine HCl) 30 Mg Capsule.dr 60 Mg PO HS Peridex (Chlorhexidine Gluconate) 118 Ml Mouthwash 15 Ml PO Q12H Flomax* (Tamsulosin HCl) 0.4 Mg Cap.sr.24h 1 Cap PO DAILY Seroquel (Quetiapine Fumarate) 25 Mg Tablet 3 Tab PO DAILY Past Medical History Medical History Comment Hypertension GERD Duodenal ulcer CVA Past Surgical History Surgical History Comment None Past Family History Family History: FH: COPD (chronic obstructive pulmonary disease) MOTHER FH: colon cancer MOTHER FH: kidney cancer BROTHER Health Maintenance Health Maintenance Drug Use: None Lives In: Assisted Care Physical Exam Last Vital Signs Recorded: Temperature: 97.8, Source: Oral, Heart Rate: 83, Respiratory Rate: 20, BP: 124/90, Pulse Oximetry: 92, Weight: 94.550 Results Diagram Lab Result Diagram: 09/30/25 0520 09/30/25 0520 JOSUE MISHRA MD Sep 30, 2025 18:37
[2025-09-30] MEDS: metoprolol tartrate 12.5mg (1/2 tablet) PO SCH (20:04)
[2025-10-01] VITALS (20 sets, daily range): BP systolic 122–168; BP diastolic 64–114; PULSE 57–81; RESP 16–36; TEMP 97.3–98.1; O2SAT 92–100
[2025-10-01 05:43] LABS: MEAN PLATELET VOLUME 8.9 FL (7.4-10.4); RED CELL DISTRIBUTION WIDTH 14.2 % (11.5-14.5)
[2025-10-01 05:58] LABS: CREATININE 0.84 MG/DL (0.60-1.10); TOTAL CARBON DIOXIDE 29.5 MMOL/L (24-32); eCRCL 85 ML/MIN; eGFR > 90 ML/MIN
[2025-10-01] MEDS ORDERED: fentaNYL/PF 50MCG/1 ML 2ML syringe ONE (08:09)
[2025-10-01] MEDS ORDERED: midazolam 1 mg/ML 2ml injection ONE (08:09)
[2025-10-01] MEDS ORDERED: LIDOcaine 2% (20mg/ml) 5ml vial ONE (08:12)
[2025-10-01] MEDS ORDERED: propofol inj 20 ML IV ONE (08:12)
[2025-10-01] MEDS ORDERED: ondansetron 4mg rapidly disintigrating tab PO PRN (08:40)
--- NOTE | 2025-10-01 14:39 | PROGRESS NOTE- Residence ---
Progress Note - Resident Providers to CC Resident Creating Document: ABELARDO MOLINA, JIE CC: VASU YOUNG MD ~ Antibiotic Timeout Antibiotic Ordered?: No Subjective Patient was seen and examined bedside. Patient came back from endoscopy which revealed severe reflux esophagitis. Patient's blood pressure has been in the higher side with a maximum reached systolic blood pressure at 170 Objective Vital Signs Date Time Temp Pulse Resp B/P (MAP) Pulse Ox O2 Delivery O2 Flow Rate FiO2 10/01/25 11:13 62 10/01/25 09:15 16 138/94 (109) 97 Room Air 10/01/25 09:10 97.5 2.0 Result Diagram: 10/01/2551710/01/25517 General: Alert, awake, oriented, not in acute distress HEENT: PERRLA, no icterus, pallor, lymphadenopathy, carotid bruit Respiratory system: Bilateral vesicular breath sounds heard, no adventitious breath sounds CVS: S1-S2 heard, no murmurs/rubs/gallop GI: Soft, nontender, no organomegaly, no guarding/rigidity, bowel sounds present Neuro: No focal neurological deficits present Mental status exam: alert and consciousness, orientation, memory, speech - Cranial nerve test: Cranial nerves 2-12 intact - Motor system: Nutrition, Tone 3+, Power 5/5, no involuntary movements - Sensory system: Intact - Reflex testing: Biceps, triceps and knee reflexes 2+ - Cerebellar: Normal Extremities: No edema cyanosis clubbing/deformities Skin: Warm and dry Coagulation Studies Laboratory Tests Test 09/30/25 05:20 Prothrombin Time 10.6 SECONDS (9.0-12.0) INR International Normalized Ratio 1.0 INR Activated Partial Thromboplast Time 28 SECONDS (22-32) Coagulation Comments Assessment Assessment A 64-year-old male with a past medical history of nonbleeding duodenal ulcer about a month ago presented to the ED in view of large volume hematemesis. Patient is admitted for the evaluation management of possible upper GI bleed. Patient underwent upper GI endoscopy this morning. Plan Plan Upper GI bleed 2/2 reflux esophagitis S/p upper GI endoscopy H/H stable IV Protonix 40 mg q.12h Zofran 4 mg p.r.n. for nausea and vomitings Resume regular diet Upper GI endoscopic findings: LA Grade D reflux esophagitis with no bleeding, erythematous mucosa in the antrum which was biopsied. Normal duodenal bulb and 2nd portion of the duodenum. Follow up with biopsy findings. GI recommended Protonix 40 mg b.i.d. appreciate recs Patient has been given the information about GI clinic. I tried to call the GI office, it was getting connected to with the answering service in the office would only be reopened on Saturday when we could leave a voice message or talk to the appropriate person to have an appointment. Please have an appointment created on Saturday for this patient. Hypertension Amlodipine 5 mg daily Continue to monitor vitals Mild leukocytosis Probably reactive WBC count, downtrended History of CVA Hold aspirin 81 mg that she takes at home Can continue at least 10-14 days after discharge Code status: Full code DVT prophylaxis: SCDs Nutrition: Regular diet Prognosis: Guarded Disposition: Possible discharge in a.m. after PT evaluation Abelardo Molina MD Internal Medicine, PGY 2 Date of Service: Oct 01, 2025 Billing Provider: VASU YOUNG MD Common Visit Codes: [id number] INP/OBS CARE(HIGH) ABELARDO MOLINA, RES Oct 01, 2025 14:39 VASU YOUNG MD Oct 02, 2025 06:56
[2025-10-01] MEDS: duloxetine 30mg CAPSULE.DR PO SCH (20:20)
[2025-10-02] VITALS (7 sets, daily range): BP systolic 111–146; BP diastolic 64–87; PULSE 58–84; RESP 16–19; TEMP 97.5–98.8; O2SAT 93–97
[2025-10-02 06:45] LABS: MEAN PLATELET VOLUME 9.6 FL (7.4-10.4); RED CELL DISTRIBUTION WIDTH 14.0 % (11.5-14.5)
[2025-10-02 07:01] LABS: CREATININE 0.85 MG/DL (0.60-1.10); TOTAL CARBON DIOXIDE 30.2 MMOL/L (24-32); eCRCL 84 ML/MIN; eGFR 90 ML/MIN
[2025-10-02 11:10] LABS: PRO BRAIN NATRIURETIC PEPTIDE 389 PG/ML (0-125)
[2025-10-02] MEDS: ipratropium/albuterol 3ml nebule NEB SCH (12:20)
[2025-10-02] MEDS ORDERED: ALBU8HFA PO (16:11)
[2025-10-02] MEDS ORDERED: AMLO5TAB PO (16:11)
[2025-10-02] MEDS ORDERED: FURO-150 PO (16:11)
--- NOTE | 2025-10-02 17:52 | DISCHARGE SUMMARY-Residence ---
Discharge Summary Providers to CC Resident Creating Document: VASU YOUNG MD ~ Discharge Summary Admission Diagnosis: Hematemesis Hospital Course DATE OF ADMISSION: 09/30/2025 DATE OF DISCHARGE: 10/02/2025 Discharge Diagnosis\Comment: Hematemesis from Grade D reflux esophagitis Hypertension Chronic Congestive heart failure with unknown ejection fraction Ischemic stroke with residual left-sided weakness Operations\Procedures: Endoscopy Consultants: Dr. Martínez, vocational adviser Complications: None Condition on DC: Stable New Medications: albuterol inhaler (Pro-Air Inhaler) 8.5 Gm Inhaler 1-2 PUFFS PO Q4H PRN for shortness of breath for 30 Days, #2 INH Amlodipine Besylate (Amlodipine Besylate) 5 Mg Tablet 1 TABLET PO DAILY, #30 TABLET 5 Refills Furosemide (Lasix) 20 Mg Tablet 20 MG PO DAILY, #10 TAB Continued Medications: Acetaminophen (Tylenol) 325 Mg Tablet 650 MG PO Q6H PRN PAIN PRN for pain, TAB Ascorbic Acid (Vitamin C) 500 Mg Capsule 1 CAP PO DAILY for 30 Days, #30 CAP 0 Refills Chlorhexidine Gluconate (Peridex) 118 Ml Mouthwash 15 ML PO Q12H, ML 0 Refills Cholecalciferol (Vitamin D3) (Vitamin D3) 50 Mcg (2000 Unit) Tablet 1 TAB PO DAILY for 30 Days, #30 TAB 0 Refills Duloxetine Hcl* (Cymbalta*) 30 Mg Capsule.dr 60 MG PO HS, CAP.SR Ferrous Sulfate (Ferosul) 325 Mg (65 Mg Iron) Tablet 325 MG PO DAILY for 90 Days, TAB ONDANSETRON ODT 4mg tablet (Ondansetron Odt) 4 Mg Tab.rapdis 1 TABLET PO Q6H PRN for nausea/vomiting, TABLET Oxycodone HCl/Acetaminophen (Percocet 10-325 mg Tablet) 1 Each Tablet 1 TAB PO Q4H PRN for pain MDD 4 Tablet(s), TAB 0 Refills Promethazine HCl (Promethazine HCl) 25 Mg Tablet 25 MG PO Q6H PRN for nausea/vomiting Quetiapine Fumarate (Seroquel) 25 Mg Tablet 3 TAB PO DAILY, TAB Quetiapine Fumarate* (Seroquel*) 100 Mg Tablet 1 TAB PO HS, TAB Tamsulosin Hcl* (Flomax*) 0.4 Mg Cap.sr.24h 1 CAP PO DAILY, CAP Discharge Summary: History of present illness : This is a 64-year-old male with past medical history of hypertension, GERD, recently diagnosed duodenal ulcer who came to the ER complaining of 1 episode of large volume hematemesis. He was diagnosed with LA grade D reflux esophagitis with no bleeding, erythematous mucosa in antrum and nonbleeding duodenal ulcer with clean ulcer base the 1st week of August. He was discharged with Protonix 40 mg p.o. b.i.d. but he was only taking it once a day. He drinks alcohol few times a week, 30 mL of whiskey a day. Last drink was 20 days ago. No previous history of liver disease, elevated transaminitis, esophageal varices, melena or hematochezia. Not on any blood thinners, NSAIDs, and pulse, or any other gastric irritant drugs. He lives in [facility] due to residual weakness from his past ischemic stroke. Hospital course: The patient did not have any episodes of vomiting or hematemesis during hospitalization. He was started on Protonix drip on admission. He was hemodynamically stable with H&H levels of 16 and 48.4. He underwent endoscopy on 10/01/2025 which showed grade D reflux esophagitis with no active bleeding. He was started on Protonix 40 mg IV b.i.d. during the course of his hospitalization he developed some wheezing, with a lung picture showing pulmonary vascular congestion and patchy airspace infiltration. He was given DuoNeb inhalers and Lasix trial after which he had significant output of 500 mL in 3 hours. He was started on amlodipine 5 mg p.o. daily due to sustained high blood pressure throughout hospitalization. Physical therapy cleared him for home discharge. He was hemodynamically stable and symptomatically better and hence being discharged with the following instructions. Vital Signs Date Time Temp Pulse Resp B/P (MAP) Pulse Ox O2 Delivery O2 Flow Rate FiO2 10/02/25 12:30 83 16 Room Air 0.0 10/02/25 12:21 94 21 10/02/25 10:00 98.4 140/87 (104) Laboratory Tests Test 10/01/25 05:18 10/02/25 05:33 White Blood Count 9.9 X10'3 6.8 X10'3 Red Blood Count 4.86 X10'6 4.83 X10'6 Hemoglobin 14.1 g/dl 14.1 g/dl Hematocrit 42.0 % 42.2 % Mean Corpuscular Volume 86.5 FL 87.4 FL Mean Corpuscular Hemoglobin 29.0 PG 29.1 PG Mean Corpuscular Hemoglobin Concent 33.5 g/dL 33.3 g/dL Red Cell Distribution Width 14.2 % 14.0 % Platelet Count 260 X10'3 238 X10'3 Mean Platelet Volume 8.9 FL 9.6 FL Neutrophils (%) (Auto) 72.3 % 61.3 % Lymphocytes (%) (Auto) 16.5 % 23.4 % Monocytes (%) (Auto) 6.9 % 9.3 % Eosinophils (%) (Auto) 3.6 % 5.3 % Basophils (%) (Auto) 0.7 % 0.7 % Neutrophils # (Auto) 7.2 X10'3 4.2 X10'3 Lymphocytes # (Auto) 1.6 X10'3 1.6 X10'3 Monocytes # (Auto) 0.7 X10'3 0.6 X10'3 Eosinophils # (Auto) 0.4 X10'3 0.4 X10'3 Basophils # (Auto) 0.1 X10'3 0.0 X10'3 CBC Comment Sodium Level 142 MMOL/L 141 MMOL/L Potassium Level 4.2 MMOL/L 3.7 MMOL/L Chloride Level 105 MMOL/L 106 MMOL/L Carbon Dioxide Level 29.5 MMOL/L 30.2 MMOL/L Anion Gap 8 5 Blood Urea Nitrogen 9 MG/DL 7 MG/DL Creatinine 0.84 MG/DL 0.85 MG/DL Estimated GFR/1.73 m2 > 90 ML/MIN 90 ML/MIN BUN/Creatinine Ratio 10.7 8.2 Glucose Level 105 MG/DL 98 MG/DL Calcium Level 8.0 MG/DL 8.0 MG/DL Total Bilirubin 0.5 MG/DL 0.5 MG/DL Aspartate Amino Transf (AST/SGOT) 22 U/L 29 U/L Alanine Aminotransferase (ALT/SGPT) 33 U/L 37 U/L Alkaline Phosphatase 69 IU/L 63 IU/L Total Protein 7.0 G/DL 7.3 G/DL Albumin 3.5 G/DL 3.3 G/DL Globulin 3.5 G/DL 4.0 G/DL Albumin/Globulin Ratio 1.0 0.8 Chemistry Comments Pro-B-Type Natriuretic Peptide 389 PG/ML Imaging: Chest x-ray :Cardiomegaly with pulmonary vascular congestion and bilateral patchy airspace opacities. Small to moderate left pleural effusion Physical exam on discharge: General: Well alert, well oriented, not confused, not agitated, not in acute distress, well cooperated during the physical. HEENT: Conjunctive are pink, sclerae clear, no icterus, pupil is equal in both sides, reactive to light, no ear discharge, no pharyngeal erythema or an edema. Neck: Supple, no JVD, no lymphadenopathy and thyromegaly. Chest: Equal air entry on both lungs, no added sounds, no wheeze. Cardiovascular: S1-S2 regular sinus rhythm and, regular rate, no gallops, no rubs, no murmurs Abdomen: No visible peristalsis, Bowel sounds present on auscultation, soft, nontender, no guarding, no rigidity Extremities: No obvious deformities, no pitting edema bilaterally, capillary refill intact, peripheral pulsations are intact on both sides Musculoskeletal: No joint swelling, deformities, inflammations, and no scoliosis and back tenderness Skin: Warm and dry. MENTAL STATUS: AAOx3 LANG/SPEECH: Fluent, intact naming, repetition & comprehension CRANIAL NERVES: II: Pupils equal and reactive, no RAPD, normal visual field and fundus III, IV, : EOM intact, no gaze preference or deviation V: normal VII: no facial asymmetry VIII: normal hearing to speech MOTOR: 3/5 in left upper and lower extremities, 5/5 in right upper and lower extremity REFLEXES: 2/4 throughout, bilateral flexor plantars SENSORY: Normal to touch, temperature & pin prick in all extremiteis COORD: Normal finger to nose and heel to torres, no tremor, no dysmetria Discharge instructions: Take your medications regularly Protonix 40 mg p.o. b.i.d. Lasix 20 mg p.o. daily Albuterol inhaler 1-2 puffs q.4h p.r.n. Zosyn 4 mg p.r.n. in case of nausea and vomiting DVT or meals into smaller portions, 8 5 we will study. Avoid acidic food. Drink coffee after meal to protect gastric mucosa. Stay upright after meals. Last meal 3-4 hours before going to bed. Go to bed with slight elevation using 2 pillows. Follow up with your primary care provider in 1 week Follow up with your vocational adviser in 1 week for colonoscopy. Visit ER immediately in case of any emergencies including vomiting, hematemesis, chest pain, fatigue, dizziness, syncope. *Problems/Diagnosis: (1) Upper GI bleed Status: Acute (2) Hematemesis Status: Acute (3) GERD (gastroesophageal reflux disease) Status: Acute (4) Vomiting Status: Acute (5) CHF (congestive heart failure) (6) CVA (cerebral vascular accident) Status: Chronic Total Time Spent on D/C: > 30 Minutes Counseling Services Smoking & Tobacco Cessation: > 10 Minutes Date of Service: Oct 02, 2025 Billing Provider: VASU YOUNG MD Common Visit Codes: [id number] DISCH DAY >30min Problem Qualifiers (1) Hematemesis: Nausea presence: with nausea Qualified Codes: K92.0 - Hematemesis KEVIN BANKS, RES Oct 02, 2025 16:18 VASU YOUNG MD Oct 03, 2025 08:22
== END 2025-10-02 17:07 | disposition home or self-care (01) | DRG 369 ==
LOC: ER 04:47 → ED HOLD 07:44 → PCU 3S 09:05 → ORTHO 4S 10-02 00:40
PROVIDERS: ADMIT Internal Medicine; ATTEND Internal Medicine
PROC: 0DB78ZX Excision of Stomach, Pylorus, Via Natural or Artificial Opening Endoscopic, Diagnostic (ICD-10-PCS; principal; 2025-10-01 08:05)
DX: K21.01 Gastro-esophageal reflux disease with esophagitis, with bleeding (principal); I69.354 Hemiplegia and hemiparesis following cerebral infarction affecting left non-dominant side; I50.9 Heart failure, unspecified; I11.0 Hypertensive heart disease with heart failure; K26.9 Duodenal ulcer, unspecified as acute or chronic, without hemorrhage or perforation; E86.0 Dehydration; D72.829 Elevated white blood cell count, unspecified; Z82.5 Family history of asthma and other chronic lower respiratory diseases; Z80.0 Family history of malignant neoplasm of digestive organs; Z79.899 Other long term (current) drug therapy; Z80.51 Family history of malignant neoplasm of kidney; Z87.11 Personal history of peptic ulcer disease
CPT/HCPCS: 36415; 43239; 71045; 80048; 80053; 80076; 80320; 82272; 83690; 83735; 83880; 84484; 85025; 85610; 85730; 86885; 86900; 86901; 87081; 88305; 88342; 93005; 94640; 94760; 97161; 97530; 99285; A4615; A6590; G0378; J1938; J2003; J2250; J2270; J2405; J2470; J2704; J3010; J7030

== ENCOUNTER 2025-10-21 14:27 | Emergency (ER) | payer MEDICARE ==
[~2025-10-21] VITALS: Ht 172.7 cm; Wt 95.5 kg
[~2025-10-21 14:27] MED LIST changes: +ALBU8HFA PO; +AMLO5TAB PO; -AZIT500T2 PO; +FURO-150 PO; -PANT40TA54 PO; -thiamine tablet PO
[2025-10-21 14:29] VITALS: TEMP 98.1
--- NOTE | 2025-10-21 14:45 | Physician Documentation ---
History of Present Illness ~ Chief Complaint: Rash Stated Complaint: STAPH Time Seen by MD: 14:45 HPI Patient is a very pleasant 64-year-old male that presents to the emergency department accompanied by a global analytics head from an assisted living facility. Patient's global analytics head reports that he has developed a rash on his suprapubic area scrotum and down his legs. Was able to visualize the suprapubic region, appears like small abscesses or folliculitis in the pubic hair area. Was unable to visualize scrotum and thighs in the triage room. Care provider denies fever chills nausea vomiting diarrhea at this time. Care provider reports that the center is concerned they may have a staph infection. Medication Reconciliation Allergies: Coded Allergies: No Known Allergies (Unverified , 10/21/25) Scheduled Amlodipine* (Norvasc*), 2 TAB PO DAILY, (Reported) Ascorbic Acid (Vitamin C), 1 CAP PO DAILY, (Reported) Chlorhexidine Gluconate (Peridex), 15 ML PO Q12H, (Reported) Cholecalciferol (Vitamin D3) (Vitamin D3), 1 TAB PO DAILY, (Reported) Duloxetine Hcl* (Cymbalta*), 60 MG PO HS, (Reported) Ferrous Sulfate (Ferosul), 325 MG PO DAILY, (Reported) Furosemide (Lasix), 1 TAB PO DAILY, (Reported) Quetiapine Fumarate (Seroquel), 3 TAB PO DAILY, (Reported) Quetiapine Fumarate* (Seroquel*), 1 TAB PO HS, (Reported) Tamsulosin Hcl* (Flomax*), 1 CAP PO DAILY, (Reported) Scheduled PRN ONDANSETRON ODT 4mg tablet (Ondansetron Odt), 1 TABLET PO Q6H PRN for nausea/vomiting, (Reported) Promethazine HCl (Promethazine HCl), 25 MG PO Q6H PRN for nausea/vomiting, (Reported) Past Medical History Past Medical History: CVA/TIA/Stroke, GERD Other Past Surgical History: IVC filter Patient History: FH: COPD (chronic obstructive pulmonary disease) MOTHER FH: colon cancer MOTHER FH: kidney cancer BROTHER Drug Use: none Lives In: Assisted Care Review of Systems ROS As stated above in the HPI, otherwise all systems are reviewed and negative. Physical Exam Vital Signs: Temperature: 98.1, Source: Oral, Heart Rate: 87, Respiratory Rate: 16, BP: 100/81, Pulse Oximetry: 95, Weight: 95.450 Physical Exam VITALS: Reviewed and as above. GENERAL: Alert, no apparent distress. MUSCULOSKELETAL No deformities, no edema SKIN: Warm and dry, multiple small lesions some of which have abscessed, maybe consistent with a folliculitis or infection at this time. NEURO: Oriented x4, No motor or sensory deficit PSYCH: Normal mood and affect, no agitation Progress Results/Orders Results/Orders Completed Orders - CELINA ARREOLA Cult (Aer) Routine C&S+Gram St (10/21/25 16:06) Cephalexin Capsule (Keflex Capsule) (10/21/25 16:10) Sulfamethox/Trimetho. Ds Tab (Septra Ds (10/21/25 16:10) Microbiology Date/Time Source Procedure Growth Status 10/21/25 16:36 Leg Left Drainage Routine Culture - Final Staphylococcus Aureus Complete Medical Decision Making Additional information obtaine: other Findings Medical Decision Making - Moderate Complexity Chief Concern: Multiple small abscesses/folliculitis in suprapubic, scrotal, and thigh regions with concern for staphylococcal infection Differential Diagnosis: Staphylococcal skin and soft tissue infection (furuncles/folliculitis/small abscesses) - most likely Methicillin-resistant Staphylococcus aureus (MRSA) infection Polymicrobial skin infection Inflamed epidermoid cysts Risk Stratification: The patient is a 64-year-old male residing in an assisted living facility, which represents a risk factor for MRSA colonization and infection. Elderly patients in long-term care facilities have high prevalence of multidrug-resistant organism colonization. The patient currently has [2-3] no systemic signs of infection - specifically no fever, tachycardia, tachypnea, or other SIRS criteria reported by global analytics head. Assessment and Clinical Reasoning: Physical examination revealed multiple small abscesses or folliculitis in the pubic hair region of the suprapubic area. Staphylococcus aureus, including MRSA strains, causes the majority of purulent skin infections. The presentation is consistent with [4-5] furuncles or small cutaneous abscesses, which are typically caused by S. aureus. [1] Given the patient's residence in an assisted living facility and the purulent nature of the lesions, empiric coverage for community-associated MRSA is warranted. The absence of SIRS criteria, combined with the small size and localized nature of the lesions, indicates this is a [2][6] mild purulent skin and soft tissue infection. [1] Treatment Plan and Rationale: Incision and Drainage: The Infectious Diseases Society of [place] recommends incision and drainage as the primary treatment for cutaneous abscesses, furuncles, and carbuncles. [1]. This patient refused Incision and drainage of the abscesses. Adjunctive Antibiotic Therapy: While incision and drainage alone may be adequate for small abscesses without systemic signs, adjunctive antibiotics are recommended given multiple lesions and the patient's residence in a long-term care facility with associated MRSA risk. Recent evidence demonstrates that antibiotic therapy in addition to drainage improves cure rates and decreases recurrence. [1][4][6-7] Antibiotic Selection: Prescribed trimethoprim-sulfamethoxazole (TMP-SMX) 1-2 double-strength tablets orally twice daily for 7 days. TMP-SMX has excellent in vitro activity against community-associated MRSA (94-100% susceptibility) and is recommended by IDSA guidelines for outpatient treatment of purulent skin infections. Alternative agents include clindamycin or doxycycline, though TMP- SMX was chosen given favorable side effect profile compared to clindamycin in recent trials. [4][6-7] Infection Control: Advised facility on importance of hand hygiene and environmental cleaning given risk of MRSA transmission in long-term care settings. Daily laundering of bedding and towels recommended during treatment period. [3][8] Follow-up and Safety Net: Return to emergency department or follow up with primary care physician in 48-72 hours for reassessment of response to therapy and examination of areas not visualized today (scrotum and thighs) Immediate return if develops fever, worsening erythema, increased pain, or systemic symptoms Culture and sensitivity testing was not performed but treatment without cultures is reasonable in typical cases [1] If no improvement in 48-72 hours, consider culture-guided therapy adjustment Disposition: Discharge to assisted living facility with close follow-up Data Reviewed: Physical examination findings, global analytics head history Risk of Complications: Moderate - given multiple lesions, long-term care facility residence, and age, though mitigated by absence of systemic signs and appropriate antibiotic coverage Differential Dx:Considerations: Include: Abscess, AIDS/HIV, Anthrax (cutaneous), Atopic dermatitis, Candidiasis, Contact dermatitis, Drug reaction, Erythema multiforme, Erysipelas, Gangrene, Herpes zoster, Herpes simplex, Hidradenitis suppurativa, Impetigo, Intertrigo, Lymes disease, Molluscum conta giosum, Osteomyelitis, Pediculosis, Pityriasis rosea, Psoriaisis, RMSF, Rosacea, Scabies, Scarlet fever, Tinea, Urticaria, Varicella, Viral exanthema, Other Departure Disposition: 01 HOME / SELF CARE / HOMELESS Impression: Primary Impression: Infection of skin and subcutaneous tissue Condition: Stable Discharge Instructions: Skin Abscess, [id number] Additional Instructions: Your Diagnosis You have a skin infection with small abscesses (pockets of infection) in your pubic area, scrotum, and legs. This type of infection is often caused by bacteria called staph. Your Medications You will take two antibiotics to treat this infection: Trimethoprim-sulfamethoxazole (Bactrim): Take 1 double-strength tablet by mouth twice daily for 7 days Cephalexin (Keflex): Take 500 mg by mouth four times daily for 7 days Take all doses exactly as prescribed, even if you start feeling better Finish all the medication - do not stop early Take with food if the medicine upsets your stomach If you miss a dose, take it as soon as you remember, then continue your regular schedule Wound Care Keep the affected areas clean and dry Wash your hands before and after touching the infected areas Do not squeeze or pick at the infected areas Preventing Spread of Infection To prevent the infection from spreading to others or coming back: Wash all clothing, towels, and bed sheets that you have used in very hot water before using them again - do this after you start taking your antibiotics Wash your hands frequently with soap and water Do not share towels, razors, or personal items with others Clean frequently touched surfaces (doorknobs, light switches) daily Follow-Up Care You must see your primary care doctor in 5 days to check how the infection is healing Your assisted living facility will be contacted about your culture results If the culture shows you need different antibiotics, a new prescription will be called to your pharmacy When to Return to the Emergency Department Come back to the emergency department right away if you develop: Fever (temperature over 100.4F or 38C) Worsening redness or the red areas getting bigger Increased pain or swelling in the infected areas New areas of infection appearing on your body Pus or drainage that gets worse Feeling confused or very weak Nausea, vomiting, or inability to keep down your medications Important Reminders The infection should start improving within 2-3 days of starting antibiotics If you do not see improvement after 2-3 days, contact your doctor Complete the full course of both antibiotics even if you feel better Your care team at the assisted living facility will help you with your medications and wound care Patient does not require contact isolation at this point. Referrals: NO PRIMARY CARE PROVIDER (PCP) Education Educated: Patient Educated regarding: diagnosis, treatment, need for follow up Signature Scribe Signature: A Attestation: Scribed for Celina Arreola by CURTIS Chavez . 10/21/25 16:54 CELINA ARREOLA Oct 21, 2025 14:45
[2025-10-21] MEDS: sulfamethoxazole/trimethoprim DS (800/160mg) tablet PO ONE (16:31)
[2025-10-21] MEDS ORDERED: SULF1TAB49 PO (16:52)
[2025-10-21] MEDS ORDERED: CEPH-585 PO (16:52)
[2025-10-21 17:08] VITALS: BP 113/61; PULSE 80; RESP 16; O2SAT 95
[2025-11-03] MEDS ORDERED: AMLO2.5T2 PO (15:30)
[2025-11-03] MEDS ORDERED: FURO40TA4 PO (15:30)
[2025-11-10] MEDS ORDERED: FURO-150 PO (13:19)
== END 2025-10-21 17:10 | disposition home or self-care (01) ==
LOC: ER 14:27
DX: L08.9 Local infection of the skin and subcutaneous tissue, unspecified (principal); K21.9 Gastro-esophageal reflux disease without esophagitis; Z86.73 Personal history of transient ischemic attack (TIA), and cerebral infarction without residual deficits; Z79.899 Other long term (current) drug therapy
CPT/HCPCS: 87070; 87077; 87081; 87186; 99283; 99284